=== PATIENT | female | born 1980 | race Caucasian/White ===

== ENCOUNTER 2020-06-13 12:53 | Emergency (ER) | payer OTHER, MEDICAID, SELFPAY ==
[2020-06-13] VITALS (12 sets, daily range): BP systolic 120–146; BP diastolic 58–85; PULSE 76–105; RESP 16–22; TEMP 36.3; O2SAT 83–100
--- NOTE | 2020-06-13 14:32 | ED.ABDPAIN ---
HPI - Abdominal Pain General Chief Complaint: Abdominal Pain Stated Complaint: abdominal pain Time Seen by Provider: 06/13/20 14:32 Source: patient Mode of arrival: Ambulatory History of Present Illness HPI narrative: 40-year-old woman with an extraordinarily convoluted story with multiple internal inconsistencies. She initially states that she walked directly off a high embankment and landed directly on her feet hurting her low back. With questioning she is unable to remember exactly which day this happened but seems to think it was about 5 days ago. It happened in the dark so she does not know how high it was but she initially thought it could be between 8 and 10 ft, when asked if that meant she was as high as off the roof of a single-story house she did not think it was quite that high. She is unable to give any other details about that acute event. She states that her low back has been sore and her left leg was increasingly heavy to the point that she had to have ?bullet around? 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 She notes that she was having increasing urinary frequency and is now having frequency with incontinence. When asked about bowel habits and entirely other set of symptoms are revealed. She says that she has not had a bowel movement in at least a week or more. She has been having trouble eating and so has been trying to use protein shakes at least. This has been going on for somewhere around 6 months. She thinks that an ER doctor and the surgeon at [facility] told her that she might have cancer and needed blood work to see if it was metastatic. She then relates the cancer concern to her knee. She notes that she has lost almost 60 lbs in 3 months. She states that 3 months ago she weighed 196 lb and today she is 136 lb. She states that with the decreased oral intake she has had significantly decreased bowel movements and only goes at most once or twice a week recently. She does note that she is having some fecal incontinence over the last few days as well. History is extraordinarily convoluted, non consistent but has multiple very concerning red flags including this recent fall, bowel and bladder incontinence, weakness after the fall, dramatic weight loss, reports that a doctor told her she needed metastatic blood work. The did agree of confusion and absolute lack of insight is extraordinary. Records have been requested from [facility] and blood work will be initiated. Related Data Previous Rx's Medication Instructions Recorded loratadine [Claritin] 10 mg PO QDAY #90 tab 05/13/13 Allergies Allergy/AdvReac Type Severity Reaction Status Date / Time Sulfa (Sulfonamide Allergy Severe HIVES/THROAT Verified 06/13/20 13:37 Antibiotics) SWELLING azithromycin Allergy Unknown Verified 06/13/20 13:37 codeine Allergy Unknown ITCHING;STOMACH Verified 06/13/20 13:37 CRAMPS etodolac Allergy Unknown Verified 06/13/20 13:37 NSAIDS (Non-Steroidal Allergy Unknown Verified 06/13/20 13:37 Anti-Inflamma [NSAIDS (NON-STEROIDAL ANTI-INFLAMMA] Review of Systems Review of Systems Narrative: Remainder of review of systems including constitutional, ENT, cardiovascular, respiratory, GI, , musculoskeletal, skin, neurologic and psychiatric systems reviewed and are unremarkable except as noted in HPI. Patient History Medical History Abdominal pain (Inactive) Drug abuse (Inactive) Psychosis (Inactive) Social History Smoking Status: Current every day smoker Smoking Status: Current every day smoker Exam Narrative Exam Narrative: General: Thin, moderately uncomfortable with low back pain HEENT: Moist mucous membranes, normal sclera with reactive pupils, Neck: No JVD, supple Respiratory: Lungs are clear to auscultation, no wheezing no rales no rhonchi. Full and symmetrical air movement Cardiac: Regular rate and rhythm no murmurs no bruits Abdomen: Soft, mild tenderness in low pelvis without rebound or guarding, good bowel tones, no flank pain Skin: Warm and dry, no rashes Spine: Tenderness along the lumbar spine without rash or erythema. Some mild paraspinous passed some on the left side. No tenderness with pelvic ring manipulation. Neurologic: Left leg with mild weakness but she is able to move twisted just and stand on it. No paresthesias Extremities: No trauma, well perfused Psych: Cooperative but tangential with poor insight Initial Vital Signs Initial Vital Signs: Vital Signs Temperature 97.4 F L 06/13/20 13:08 Pulse Rate 105 H 06/13/20 13:08 Respiratory Rate 22 06/13/20 13:08 Blood Pressure 146/61 H 06/13/20 13:08 Pulse Oximetry 99 06/13/20 13:08 Course Orders Ordered: ED Orders 06/13/20 13:36 EKG-12 Lead Stat 06/13/20 14:29 Complete Blood Count AUTO DIFF Stat Comprehensive Metabolic Panel Stat Lactate (Lactic Acid) Stat Lipase Stat Partial Thromboplastin Time Stat Prothrombin Time INR Stat Urine Drug Screen, Rapid Stat 06/13/20 15:02 XR lumbar spine 2-3V Stat 06/13/20 15:03 XR acute abdomen series Stat 06/13/20 15:04 Consult to [facility] [place] Pharmacy Techn[facility] Instructor Stat 06/13/20 16:59 CT abdomen pelvis w con Stat Discontinued Medications Sodium Chloride (Normal Saline 0.9%) 1,000 mls @ 1,000 mls/hr IV BOLUS ONE Stop: 06/13/20 15:30 Last Infusion: 06/13/20 15:52 Dose: 0 mls/hr Documented by: Admin: 06/13/20 14:38 Dose: 1,000 mls/hr Documented by: LALA Vital Signs Vital signs: Vital Signs - 8 hr 06/13/20 13:08 06/13/20 14:01 06/13/20 14:53 Temperature 97.4 F L Pulse Rate 105 H 83 88 Respiratory Rate 22 Blood Pressure 146/61 H 141/79 H 134/82 Pulse Oximetry 99 100 100 06/13/20 15:00 06/13/20 15:25 06/13/20 15:30 Temperature Pulse Rate 86 90 83 Respiratory Rate Blood Pressure 125/79 136/77 Pulse Oximetry 100 100 87 L 06/13/20 16:00 06/13/20 16:30 06/13/20 17:00 Temperature Pulse Rate 84 92 H 86 Respiratory Rate Blood Pressure Pulse Oximetry 83 L 100 89 L 06/13/20 17:19 06/13/20 17:30 Temperature Pulse Rate 81 76 Respiratory Rate Blood Pressure 122/58 L Pulse Oximetry 100 83 L MDM - Abdominal Pain Medical Records Attestation: I reviewed the patient's medical records. Medical records narrative: Medical records from [facility] indicate a history of schizophrenia and substance abuse as well as homelessness Lab Data Attestation: I reviewed the patient's lab results. Result diagrams: 06/13/20 14:29 06/13/20 14:29 Labs: Lab Results 06/13/20 06/13/2020 Range/Units 14:29 14:29 14:29 WBC 8.2 (4.5-11.0) X10^3/uL RBC 4.64 (4.0-5.2) X10^6/uL Hgb 14.0 (12.0-16.0) g/dL Hct 41.7 (36-46) % MCV 89.9 (80-100) fL MCH 30.2 (26-34) PG MCHC 33.6 (30-36) % RDW 13.9 (11.6-14.8) % Plt Count 295 (150-400) X10^3/uL Neut % (Auto) 53.7 (50-75) % Lymph % (Auto) 38.4 (25-40) % [place] % (Auto) 5.8 (3-14) % Eos % (Auto) 1.5 L (2-4) % Baso % (Auto) 0.6 (0-2) % Neut # (Auto) 4400 (4952-8865) /uL Lymph # (Auto) 3100 (2257-4873) /uL [place] # (Auto) 500 (0-900) /uL Eos # (Auto) 100 (0-450) /uL Baso # (Auto) 0 (0-100) /uL PT 12.0 (10.1-12.7) SECONDS INR 1.0 (0.9-1.3) APTT 38 H (26.4-36.2) SECONDS Sodium 137 (137-145) mmol/L Potassium 3.3 L (3.4-5.1) mmol/L Chloride 100 (98-107) mmol/L Carbon Dioxide 28 (22-32) mmol/L BUN 12 (7-17) mg/dL Creatinine 0.69 (0.52-1.04) mg/dL Estimated GFR > 60.0 (>60) mL/min BUN/Creatinine Ratio 17.4 (6-22) Glucose 93 (70-100) mg/dL Lactate (0.7-2.1) mmol/L Calcium 9.9 (8.4-10.2) mg/dL Total Bilirubin 0.7 (0.2-1.3) mg/dL AST 27 (14-36) IU/L ALT 18 (<35) IU/L Alkaline Phosphatase 54 (38-126) U/L Total Protein 7.6 (6.3-8.2) g/dL Albumin 4.8 (3.5-5.0) g/dL Globulin 2.8 (1.7-4.1) g/dL Albumin/Globulin Ratio 1.7 (1.0-2.8) Lipase 69 (23-300) U/L U Opiates 300ng/mL cut (Negative) Ur Oxycodone Screen (Negative) Urine Methadone Screen (Negative) Ur Barbiturates Screen (Negative) U Tricyclic Antidepress (Negative) Ur Phencyclidine Scrn (Negative) Ur Amphetamines Screen (Negative) U Methamphetamines Scrn (Negative) Ur MDMA Scrn (Ecstasy) (Negative) U Benzodiazepines Scrn (Negative) Urine Cocaine Screen (Negative) U Marijuana (THC) Screen (Negative) 06/13/20 06/13/20 Range/Units 14:29 14:29 WBC (4.5-11.0) X10^3/uL RBC (4.0-5.2) X10^6/uL Hgb (12.0-16.0) g/dL Hct (36-46) % MCV (80-100) fL MCH (26-34) PG MCHC (30-36) % RDW (11.6-14.8) % Plt Count (150-400) X10^3/uL Neut % (Auto) (50-75) % Lymph % (Auto) (25-40) % [place] % (Auto) (3-14) % Eos % (Auto) (2-4) % Baso % (Auto) (0-2) % Neut # (Auto) (1904-4928) /uL Lymph # (Auto) (8875-8944) /uL [place] # (Auto) (0-900) /uL Eos # (Auto) (0-450) /uL Baso # (Auto) (0-100) /uL PT (10.1-12.7) SECONDS INR (0.9-1.3) APTT (26.4-36.2) SECONDS Sodium (137-145) mmol/L Potassium (3.4-5.1) mmol/L Chloride (98-107) mmol/L Carbon Dioxide (22-32) mmol/L BUN (7-17) mg/dL Creatinine (0.52-1.04) mg/dL Estimated GFR (>60) mL/min BUN/Creatinine Ratio (6-22) Glucose (70-100) mg/dL Lactate 1.4 (0.7-2.1) mmol/L Calcium (8.4-10.2) mg/dL Total Bilirubin (0.2-1.3) mg/dL AST (14-36) IU/L ALT (<35) IU/L Alkaline Phosphatase (38-126) U/L Total Protein (6.3-8.2) g/dL Albumin (3.5-5.0) g/dL Globulin (1.7-4.1) g/dL Albumin/Globulin Ratio (1.0-2.8) Lipase (23-300) U/L U Opiates 300ng/mL cut Negative (Negative) Ur Oxycodone Screen Negative (Negative) Urine Methadone Screen Negative (Negative) Ur Barbiturates Screen Negative (Negative) U Tricyclic Antidepress Negative (Negative) Ur Phencyclidine Scrn Negative (Negative) Ur Amphetamines Screen Positive H (Negative) U Methamphetamines Scrn Positive H (Negative) Ur MDMA Scrn (Ecstasy) Negative (Negative) U Benzodiazepines Scrn Negative (Negative) Urine Cocaine Screen Negative (Negative) U Marijuana (THC) Screen Negative (Negative) Point of care testing: Point of Care Testing Test Results Negative Urine Dip Bedside Urine Glucose Negative Bedside Urine Bilirubin - Negative Bedside Urine Ketone - Negative Urine Specific [place] 1.010 Bedside Urine Occult Blood - Negative Bedside Urine pH 6.5 Bedside Urine Protein - Negative Bedside Urine Urobilinogen - Negative Bedside Urine Nitrite - Negative Bedside Urine Leukocytes - Negative Esterase Imaging Data XR lumbar sine: Radiologist's Impression: FINDINGS: Bones: No fracture. Mild levocurvature. The disc spaces appear grossly preserved. Mild lower lumbar facet disease. Soft tissues: Overlying bowel gas pattern is normal. No suspicious soft tissue calcifications. IMPRESSION: Mild lower lumbar facet arthropathy Levocurvature No fracture Dictated by: Christian Carey M.D. on 06/13/2020 at 16:07 XR acute abdominal series: Radiologist's Impression: FINDINGS: Surgical changes and devices: None. Chest: Lungs are clear. Nipple shadows. Heart size is normal. No pleural effusions. No pneumoperitoneum. Abdomen: Relative paucity of small bowel gas limits evaluation for small bowel obstruction. No dilated loops of bowel seen. No air-fluid levels. No suspicious calcifications. Bones: No suspicious bony lesions. IMPRESSION: No acute cardiopulmonary abnormality. No dilated loops of bowel seen. CT abdomen and pelvis with IV and oral contrast should be considered in this patient with substantial weight loss. Dictated by: Elmo Jackson M.D. on 06/13/2020 at 16:07 CT scan - abdomen/pelvis: Radiologist's Impression: FINDINGS: Image quality: Diagnostic, with note made of motion artifact. ABDOMEN: Lung bases: Lung bases are clear. Heart size is normal. Solid organs: Liver is normal in size and enhancement. Gallbladder wall is not thickened. Biliary system is non dilated. Pancreas enhances normally. Spleen is normal in size and enhancement. No adrenal nodules. Kidneys demonstrate normal size and enhancement, without hydronephrosis. Peritoneum and bowel: Small bowel loops within the left upper quadrant are mildly prominent and measure up to 2.6 cm. Wall thickening can be seen. Nodes and vessels: No retroperitoneal or mesenteric adenopathy by size criteria. Aorta and inferior vena cava are normal in size. Miscellaneous: A trace periumbilical hernia is seen, containing fat. PELVIS: Genitourinary: Bladder wall thickness is normal. The uterus demonstrates an arcuate configuration. Potential endometrial polyps can be seen, as on series 2, image 70. No adnexal masses can be seen on either side. Miscellaneous: No inguinal hernias or adenopathy. Bones: No suspicious bony lesions. No vertebral body compression fractures. Focal L5-S1 degenerative change is seen. Milder degenerative changes are seen elsewhere. IMPRESSION: Mildly prominent loops of small bowel can be seen within the left upper quadrant of the abdomen, with wall thickening. Ileus from enteritis is suspected. Please correlate with known patient history. Abnormal uterus, with an acute configuration and apparent endometrial polyps. Please consider a scheduled pelvic ultrasound for further evaluation. A sonohysterogram may also the common necessary for further evaluation. Focal premature L5-S1 degenerative change is seen. Incidental note is made of: Trace periumbilical hernia Dictated by: Dain Dillon M.D. on 06/13/2020 at 16:33 MDM Narrative Medical decision making narrative: 40-year-old woman with on constellation of complaints, inconsistent history. Additional information is now available. She does have methamphetamine in her urine as well as a history of methamphetamine use and psychosis as well as possible schizophrenia. She does not appear to be acutely psychotic today but is slightly tangential. Given the pain that she is having the weight loss that she describes and no documentation to disproved any of that I am going to proceed with CT scan to make sure there are not any intra-abdominal abnormalities that do need additional follow-up. I suspect she has mechanical low back pain and methamphetamine use with psychotic features as her most likely diagnosis at this time On further exam there is no evidence of compression fracture, epidural abscess, cauda equina syndrome, intra-abdominal mass or significant finding suggestive of a cancer much less metastatic cancer. I am not sure that her described weight loss is truly is significant as it is and if so a better explanation is likely methamphetamine use rather than metastatic disease. Patient states she does have a home to live in and lives on [address]. She is not acutely delusional. Reassurance is given and she is safe for home discharge. Discharge Plan Departure Patient Disposition: Home Clinical Impression: Abdominal pain Qualifiers: Abdominal location: generalized Qualified Code(s): R10.84 - Generalized abdominal pain Back pain Qualifiers: Back pain location: low back pain Chronicity: acute Back pain laterality: left Sciatica presence: without sciatica Qualified Code(s): M54.5 - Low back pain Instructions: DI for Low Back Pain Activity Restrictions/Additional Instructions: Thank you for coming in Your workup was very reassuring. I did not find any acute injury with your back after your fall. I also did not find anything that looks like a cancer which is very reassuring Please follow-up with your primary care physician I wish you the best Prescriptions: No Action loratadine [Claritin] 10 MG tablet 10 mg PO QDAY Qty: 90 RF: 1 Referrals: Luis Munguia MD [Primary Care Provider] -
[2020-06-13] MEDS: SODIUM CHLORIDE 0.9% 1,000 ML 1000 ML IV (14:38)
[2020-06-13 14:42] LABS: Add Manual Diff / Slide Review NO; Basophils Absolute Auto 0 /uL (0-100); Basophils Percent Auto 0.6 % (0-2); Eosinophils Absolute Auto 100 /uL (0-450); Eosinophils Percent Auto 1.5 % (2-4); Hematocrit 41.7 % (36-46); Lymphocytes Absolute Auto 3100 /uL (1100-4500); Lymphocytes Percent Auto 38.4 % (25-40); Mean Corpuscular HGB Conc 33.6 % (30-36); Mean Corpuscular Hemoglobin 30.2 PG (26-34); Mean Corpuscular Volume 89.9 fL (80-100); Monocytes Absolute Auto 500 /uL (0-900); Monocytes Percent Auto 5.8 % (3-14); Neutrophils Absolute Auto 4400 /uL (1500-7000); Neutrophils Percent Auto 53.7 % (50-75); Platelet Count 295 X10^3/uL (150-400); Red Blood Cell Count 4.64 X10^6/uL (4.0-5.2); Red Cell Distribution Width 13.9 % (11.6-14.8); White Blood Cell Count 8.2 X10^3/uL (4.5-11.0)
[2020-06-13 14:50] LABS: PTT Partial Thromboplastin Tim 38 SECONDS (26.4-36.2); UR Morphine/Opiate cutoff 300 Negative (Negative); Ur Creatinine Normal (Normal); Ur Specific Gravity Normal (Normal); Urine Amphetamines Positive (Negative); Urine Barbiturates Negative (Negative); Urine Benzodiazepines Negative (Negative); Urine Cocaine Negative (Negative); Urine MDMA Negative (Negative); Urine Methadone Negative (Negative); Urine Methamphetamines Positive (Negative); Urine Phencyclidine Negative (Negative); Urine Tetrahydrocannabinol Negative (Negative); Urine Tricyclic Antidepressant Negative (Negative); Urine pH Normal (Normal)
[2020-06-13 14:51] LABS: Urine Oxycodone Negative (Negative)
[2020-06-13 14:54] LABS: Alanine Aminotransferase 18 IU/L (<35); Albumin 4.8 g/dL (3.5-5.0); Albumin Globulin Ratio 1.7 (1.0-2.8); Alkaline Phosphatase 54 U/L (38-126); Aspartate Aminotransferase 27 IU/L (14-36); BUN Creatinine Ratio 17.4 (6-22); Bilirubin Total 0.7 mg/dL (0.2-1.3); Blood Urea Nitrogen 12 mg/dL (7-17); Calcium 9.9 mg/dL (8.4-10.2); Carbon Dioxide 28 mmol/L (22-32); Chloride 100 mmol/L (98-107); Estimated Glomerular Filt Rate > 60.0 mL/min (>60); Globulin 2.8 g/dL (1.7-4.1); Glucose 93 mg/dL (70-100); HEMOLYSIS < 15 (0-50); Lactate (Lactic Acid) 1.4 mmol/L (0.7-2.1); Lipase 69 U/L (23-300); Potassium 3.3 mmol/L (3.4-5.1); Sodium 137 mmol/L (137-145); Total Protein 7.6 g/dL (6.3-8.2)
--- NOTE | 2020-06-13 15:00 | PC.NURSE ---
Pt arrives c/o fall 7-8 days ago from about 8-10ft flat onto feet, states since the fall she has been having bladder bowel dysfunction. states dribbling when urinating and unable to defecate in days which is not normal for her. Pt speaking with flight of ideas, states how she was seen at [facility] over 1 year ago and was dx with metastatic CA without unknown origin and was supposed to follow up but never had the time. I went to [facility] because my knee was leaking and they said I had metastasis Pt twitching which she states is not normal for her. Urine obtained and sent for UAC and drug screen. IV obtained and labs sent with IVF infusing per MAR. NAD.
--- NOTE | 2020-06-13 15:02 | DI.RAD.S_ITS ---
PROCEDURE: XR LUMBAR SPINE 2-3V INDICATIONS: recent trauma TECHNIQUE: 3 views of the lumbar spine were acquired. COMPARISON: None. FINDINGS: Bones: No fracture. Mild levocurvature. The disc spaces appear grossly preserved. Mild lower lumbar facet disease. Soft tissues: Overlying bowel gas pattern is normal. No suspicious soft tissue calcifications. IMPRESSION: Mild lower lumbar facet arthropathy Levocurvature No fracture Dictated by: Christian Carey M.D. on 06/13/2020 at 16:07 Approved by: Christian Carey M.D. on 06/13/2020 at 16:09
--- NOTE | 2020-06-13 15:03 | DI.RAD.S_ITS ---
PROCEDURE: XR ACUTE ABDOMEN SERIES INDICATIONS: weight loss TECHNIQUE: One view chest and two views of the abdomen were acquired. COMPARISON: [facility], , ABDOMEN 2 VIEW, 06/24/2017, 4:56. FINDINGS: Surgical changes and devices: None. Chest: Lungs are clear. Nipple shadows. Heart size is normal. No pleural effusions. No pneumoperitoneum. Abdomen: Relative paucity of small bowel gas limits evaluation for small bowel obstruction. No dilated loops of bowel seen. No air-fluid levels. No suspicious calcifications. Bones: No suspicious bony lesions. IMPRESSION: No acute cardiopulmonary abnormality. No dilated loops of bowel seen. CT abdomen and pelvis with IV and oral contrast should be considered in this patient with substantial weight loss. Dictated by: Elmo Jackson M.D. on 06/13/2020 at 16:07 Approved by: Elmo Jackson M.D. on 06/13/2020 at 16:13
--- NOTE | 2020-06-13 15:22 | CM.SWNOTE ---
AUTOTRANSFUSIONIST note AUTOTRANSFUSIONIST consult/records review requested for patient. Patient is a 40 y/o female who presents to ED after a fall. Per Dr. Gordon and RN, patient's story is inconsistent and patient makes several concerning statements including stating that she had been diagnosed with metastatic cancer 1 year prior at [facility] and not engaged in follow up care. Dr. Gordon requests AUTOTRANSFUSIONIST review chart and Karl to see if there is any any relevant history to better inform today's presentation. AUTOTRANSFUSIONIST reviews KARL and sees 2 visits to [facility] by patient in 2019. Per Karl, patient was seen at [facility] for a fit for prison in July of 2019 and for an allergic reaction on April of 2019. AUTOTRANSFUSIONIST informs Dr. Gordon of this, and Dr. Gordon informs that there are no other needs from AUTOTRANSFUSIONIST at this time. CODIE Post
--- NOTE | 2020-06-13 16:59 | DI.CT.S_ITS ---
PROCEDURE: CT ABDOMEN PELVIS W CON INDICATIONS: significant weight loss with abdominal and back pain TECHNIQUE: After the administration of intravenous contrast, 5 mm thick sections acquired from the diaphragm to the symphysis. 5 mm coronal and sagittal reformats were acquired. For radiation dose reduction, the following was used: automated exposure control, adjustment of mA and/or kV according to patient size. COMPARISON: [facility], CR, XR ACUTE ABDOMEN SERIES, 06/13/2020, 14:58. [facility], CR, XR LUMBAR SPINE 2-3V, 06/13/2020, 14:58. FINDINGS: Image quality: Diagnostic, with note made of motion artifact. ABDOMEN: Lung bases: Lung bases are clear. Heart size is normal. Solid organs: Liver is normal in size and enhancement. Gallbladder wall is not thickened. Biliary system is non dilated. Pancreas enhances normally. Spleen is normal in size and enhancement. No adrenal nodules. Kidneys demonstrate normal size and enhancement, without hydronephrosis. Peritoneum and bowel: Small bowel loops within the left upper quadrant are mildly prominent and measure up to 2.6 cm. Wall thickening can be seen. Nodes and vessels: No retroperitoneal or mesenteric adenopathy by size criteria. Aorta and inferior vena cava are normal in size. Miscellaneous: A trace periumbilical hernia is seen, containing fat. PELVIS: Genitourinary: Bladder wall thickness is normal. The uterus demonstrates an arcuate configuration. Potential endometrial polyps can be seen, as on series 2, image 70. No adnexal masses can be seen on either side. Miscellaneous: No inguinal hernias or adenopathy. Bones: No suspicious bony lesions. No vertebral body compression fractures. Focal L5-S1 degenerative change is seen. Milder degenerative changes are seen elsewhere. IMPRESSION: Mildly prominent loops of small bowel can be seen within the left upper quadrant of the abdomen, with wall thickening. Ileus from enteritis is suspected. Please correlate with known patient history. Abnormal uterus, with an acute configuration and apparent endometrial polyps. Please consider a scheduled pelvic ultrasound for further evaluation. A sonohysterogram may also the common necessary for further evaluation. Focal premature L5-S1 degenerative change is seen. Incidental note is made of: Trace periumbilical hernia Dictated by: Dain Dillon M.D. on 06/13/2020 at 16:33 Approved by: Dain Dillon M.D. on 06/13/2020 at 16:36
== END 2020-06-13 18:30 | disposition home or self-care (01) ==
PROVIDERS: Emergency Provider Emergency Medicine; PCP Family Medicine
DX: R10.84 Generalized abdominal pain (principal); M54.5 Low back pain
CPT/HCPCS: 36415; 72100; 74022; 74177; 80053; 80305; 81003; 81025; 83605; 83690; 85025; 85610; 85730; 93005; 96360; 99284; 99285; Q9967

== ENCOUNTER 2020-09-06 01:19 | Emergency (ER) | payer OTHER, MEDICAID, SELFPAY ==
--- NOTE | 2020-09-06 01:30 | PC.NURSE ---
I could not locate her in waiting room,admitting stated she was in the bathroom and that is why she initially came into hospital.
[2020-09-06 01:40] VITALS: BP 125/80; PULSE 110; RESP 20; TEMP 37; O2SAT 98
--- NOTE | 2020-09-06 02:00 | ED.GENADULT ---
HPI - General Adult General Chief complaint: Extremity Problem,Nontraumatic Stated complaint: Toe infection multiple toes Time Seen by Provider: 09/06/20 01:21 Source: patient Mode of arrival: Ambulatory Limitations: no limitations History of Present Illness HPI narrative: Patient is a 40-year-old female who is here for evaluation of potential toe infections. She states that she feels like that there was an infection that started in the back of her legs that went down and is now ?coming out of my toes ?she states this is been going on for the past several weeks/months. She states that generally she just does not feel very well. Has had weight loss. Did initially mention multiple other complaints to nursing staff however states she is here to have her toes evaluated. His also reported that the only reason that she checked in to the emergency department was because she is homeless and came into the hospital asking to use the restroom in the registration staff stated that she could not just use the restroom so she decided to check in. Review of her medical record shows that she does have a history of schizophrenia and drug use Related Data Previous Rx's Medication Instructions Recorded loratadine [Claritin] 10 mg PO QDAY #90 tab 05/13/13 Allergies Allergy/AdvReac Type Severity Reaction Status Date / Time Sulfa (Sulfonamide Allergy Severe HIVES/THROAT Verified 06/13/20 13:37 Antibiotics) SWELLING azithromycin Allergy Unknown Verified 06/13/20 13:37 codeine Allergy Unknown ITCHING;STOMACH Verified 06/13/20 13:37 CRAMPS etodolac Allergy Unknown Verified 06/13/20 13:37 NSAIDS (Non-Steroidal Allergy Unknown Verified 06/13/20 13:37 Anti-Inflamma [NSAIDS (NON-STEROIDAL ANTI-INFLAMMA] Review of Systems Constitutional Constitutional: Reports malaise Musculoskeletal Comments: Infection ?coming out of my toes ? Integumentary/Breasts Skin/Breast: Denies lesions and Denies rash Neurologic Neurologic: Denies burning sensations Hematologic/Lymphatic Hematologic/Lymphatic: Denies easy bleeding and Denies easy bruising Patient History Medical History Abdominal pain Drug abuse Psychosis Social History Smoking Status: Current every day smoker Smoking Status: Current every day smoker Substance Use Type: methamphetamine Exam Initial Vital Signs Initial Vital Signs: Vital Signs Temperature 98.6 F 09/06/20 01:40 Pulse Rate 110 H 09/06/20 01:40 Respiratory Rate 20 09/06/20 01:40 Blood Pressure 125/80 09/06/20 01:40 Pulse Oximetry 98 09/06/20 01:40 Const General: comfortable Limitations: mental status not altered HENMT Head: normal to inspection and normocephalic Cardio Rate: tachycardic Pulses: dorsalis pedis present bilaterally Skin Lesions: no lesions Rashes: no rashes Wounds: no wounds Extrem General: capillary refill normal Psych Appearance: disheveled Course Vital Signs Vital signs: Vital Signs - 8 hr 09/06/20 01:40 09/06/20 02:32 Temperature 98.6 F Pulse Rate 110 H 96 H Respiratory Rate 20 18 Blood Pressure 125/80 119/79 Pulse Oximetry 98 99 Medical Decision Making MDM Narrative Medical decision making narrative: Patient's foot exam is unremarkable. There is no redness. No lesions. Has brisk cap refill. Neurovascularly intact. Her legs and feet have no signs of any infections. No indication for antibiotics. No indication for radiologic studies. Patient was given a sandwich and hot coffee. No further workup needed in the emergency department. She was given return precautions. She expressed understanding and agreement. Discharge Plan Departure Patient Disposition: Home Clinical Impression: Normal foot exam Activity Restrictions/Additional Instructions: There was no sign of any infections today. Contact your primary provider for follow-up. If you do not have a primary provider can contact [phone]. This is the health human resources support specialist here at the hospital. Return to the emergency department for any new or worsening symptoms Prescriptions: No Action loratadine [Claritin] 10 MG tablet 10 mg PO QDAY Qty: 90 RF: 1 Referrals: Luis Munguia MD [Primary Care Provider] -
[2020-09-06 02:32] VITALS: BP 119/79; PULSE 96; RESP 18; O2SAT 99
== END 2020-09-06 02:32 | disposition home or self-care (01) ==
PROVIDERS: Emergency Provider Emergency Medicine; PCP Family Medicine
DX: L08.9 Local infection of the skin and subcutaneous tissue, unspecified (principal); F20.9 Schizophrenia, unspecified
CPT/HCPCS: 99281

== ENCOUNTER 2020-12-06 03:49 | Emergency (ER) | payer OTHER, MEDICAID, SELFPAY ==
--- NOTE | 2020-12-06 03:58 | ED.GENADULT ---
HPI - General Adult General Chief complaint: Urogenital-Female Stated complaint: wants bp checked, not feeling well Time Seen by Provider: 12/06/20 03:54 Source: patient Mode of arrival: Ambulatory Limitations: no limitations History of Present Illness HPI narrative: Patient is a 40-year-old female. His homeless and disheveled. She does have a history of schizophrenia and also drug use per her prior notes in our system. She arrives today for what seems like multiple symptoms to include ?loss of my bodily fluids ??my body is shutting down ??high blood pressure ?. She also told nursing staff that she was concerned she had infections in her legs. She also states she has pain all over. She states that things have been getting worse and that she has a very high pain tolerance. Does seem very difficult to pin down exactly why she is here. She also states that she is having some lower back pain. Related Data Previous Rx's Medication Instructions Recorded loratadine [Claritin] 10 mg PO QDAY #90 tab 05/13/13 Allergies Allergy/AdvReac Type Severity Reaction Status Date / Time Sulfa (Sulfonamide Allergy Severe HIVES/THROAT Verified 06/13/20 13:37 Antibiotics) SWELLING azithromycin Allergy Unknown Verified 06/13/20 13:37 codeine Allergy Unknown ITCHING;STOMACH Verified 06/13/20 13:37 CRAMPS etodolac Allergy Unknown Verified 06/13/20 13:37 NSAIDS (Non-Steroidal Allergy Unknown Verified 06/13/20 13:37 Anti-Inflamma [NSAIDS (NON-STEROIDAL ANTI-INFLAMMA] Review of Systems Constitutional Constitutional: Denies fever(s) Comments: Loss of bodily fluid Cardiovascular Cardiovascular: Denies chest pain and Denies dyspnea Respiratory Respiratory: Denies dyspnea Gastrointestinal Gastrointestinal: Denies abdominal pain Genitourinary Genitourinary: Denies dysuria Genitourinary: Denies dysuria Musculoskeletal Comments: ?Pain all over ? Integumentary/Breasts Comments: Potential infection on legs Hematologic/Lymphatic On Anticoagulants: No Patient History Medical History (Updated 12/06/20 @ 04:49 by Hector Beltrán DO) Abdominal pain Drug abuse Psychosis Social History Smoking Status: Current every day smoker Smoking Status: Current every day smoker Substance Use Type: methamphetamine Exam Initial Vital Signs Initial Vital Signs: Vital Signs Temperature 97.7 F 12/06/20 04:08 Pulse Rate 101 H 12/06/20 04:08 Respiratory Rate 17 12/06/20 04:08 Blood Pressure 140/85 12/06/20 04:08 Pulse Oximetry 96 12/06/20 04:08 Const General: disheveled HENMT Head: normal to inspection and normocephalic Resp Effort & Inspection: normal respiratory effort Auscultation: clear to auscultation bilaterally Cardio Rate: regular rate Rhythm: regular rhythm Back/Spine/Pelvis Thoracic/Lumbar Spine: paraspinal tenderness Skin Lesions: no lesions Rashes: no rashes Neuro General: patient alert, patient awake and moves all extremities Extrem General: capillary refill normal Psych Appearance: disheveled Course Vital Signs Vital signs: Vital Signs - 8 hr 12/06/20 04:08 Temperature 97.7 F Pulse Rate 101 H Respiratory Rate 17 Blood Pressure 140/85 Pulse Oximetry 96 Medical Decision Making Lab Data Lab results reviewed: Yes I reviewed the patient's lab results. Labs: Urine Dip Bedside Urine Glucose Negative Bedside Urine Bilirubin - Negative Bedside Urine Ketone - Negative Urine Specific [place] 1.010 Bedside Urine Occult Blood +++ Bedside Urine pH 6.5 Bedside Urine Protein +/- 15 Bedside Urine Urobilinogen - Negative Bedside Urine Nitrite - Negative Bedside Urine Leukocytes - Negative Esterase Point of care testing: Urine Dip Bedside Urine Glucose Negative Bedside Urine Bilirubin - Negative Bedside Urine Ketone - Negative Urine Specific [place] 1.010 Bedside Urine Occult Blood +++ Bedside Urine pH 6.5 Bedside Urine Protein +/- 15 Bedside Urine Urobilinogen - Negative Bedside Urine Nitrite - Negative Bedside Urine Leukocytes - Negative Esterase MDM Narrative Medical decision making narrative: Very difficult to ascertain when the patient is here as she has multiple complaints. She also made mention that she was here because she did not want to be home any longer. Her urinalysis shows no signs of any infection. She has no signs of any infections on her legs. She was given a resource packet for the local area to help her with housing. Patient will be discharged home with instructions to return if her symptoms worsen Discharge Plan Departure Patient Disposition: Home Clinical Impression: Lower back pain Instructions: Low Back Pain Activity Restrictions/Additional Instructions: Recommend that you use the resource packet that you were given to help with any of here social needs to include housing and food and clothing. You can also contact the health resources coordinator [phone]. This individual can help to establish a primary provider. Return to the emergency department for any new symptoms Prescriptions: No Action loratadine [Claritin] 10 MG tablet 10 mg PO QDAY Qty: 90 RF: 1 Referrals: Luis Munguia MD [Primary Care Provider] -
[2020-12-06 04:08] VITALS: BP 140/85; PULSE 101; RESP 17; TEMP 36.5; O2SAT 96; BMI 18.4
== END 2020-12-06 05:32 | disposition home or self-care (01) ==
PROVIDERS: Emergency Provider Emergency Medicine; PCP Family Medicine
DX: M54.5 Low back pain (principal); F20.9 Schizophrenia, unspecified; Z59.0 Homelessness
CPT/HCPCS: 81003; 99281

== ENCOUNTER 2020-12-08 11:02 | Emergency (ER) | payer OTHER, MEDICAID, SELFPAY ==
[2020-12-08 11:00] VITALS: BP 178/78; PULSE 100; RESP 24; TEMP 36.2; O2SAT 99
--- NOTE | 2020-12-08 11:06 | ED.PSYCH ---
HPI - Psych General Chief Complaint: Psychiatric Symptoms Stated Complaint: Brought by [employer] Time Seen by Provider: 12/08/20 11:06 Source: patient and police Mode of arrival: Ambulatory Limitations: other History of Present Illness HPI Narrative: This is a 40-year-old female brought by PD for concern for psychiatric illness. Patient was brought into contact with law enforcement secondary to multiple calls for businesses patient was having interactions where she was having bizarre speech. Patient is not well known to law enforcement, there is a prior note from suicidal ideation but no other psychiatric history is included. Past medical history from that no included drug and alcohol abuse. At that time patient did not have any hallucinations or bizarre speech. Here in the department it is difficult to follow patient's train of thought. She describes paranoid, a sense of being persecuted, she describes having 4 sets of sec. Let us which have been taken away from her. And she makes multiple other claims although sometimes it is very difficult to follow her train of thought. Patient keeps looking over her shoulder as if there is another individual although it is unclear if she is having a visual hallucination or just concerned about as someone persecuting her that is elsewhere outside the building. Patient denies any drug use other than something being forced upon her. She also denies any recent alcohol use. She does not wish to be examined, she does not wish to be evaluated by social Work, she does not wish to have any further workup and does not wish to be here and is not willing to stay or be evaluated. At this time I would be concerned that she is gravely disabled. Related Data Previous Rx's Medication Instructions Recorded loratadine [Claritin] 10 mg PO QDAY #90 tab 05/13/13 Allergies Allergy/AdvReac Type Severity Reaction Status Date / Time Sulfa (Sulfonamide Allergy Severe HIVES/THROAT Verified 12/08/20 13:13 Antibiotics) SWELLING azithromycin Allergy Unknown Verified 12/08/20 13:13 codeine Allergy Unknown ITCHING;STOMACH Verified 12/08/20 13:13 CRAMPS etodolac Allergy Unknown Verified 12/08/20 13:13 NSAIDS (Non-Steroidal Allergy Unknown Verified 12/08/20 13:13 Anti-Inflamma [NSAIDS (NON-STEROIDAL ANTI-INFLAMMA] Review of Systems Review of Systems ROS Unobtainable: Unobtainable due to mental status/LOC Patient History Medical History (Updated 12/09/20 @ 10:34 by Lizeth Brown DO) Abdominal pain Drug abuse Psychosis Social History Smoking Status: Current every day smoker Smoking Status: Current every day smoker Substance Use Type: methamphetamine Exam Narrative Exam Narrative: GEN: Thin disheveled female, alert, patient is aware she is at a hospital, she does not answer other specific questions. Patient appears to be in moderate distress. Patient initially handcuffed. HEENT: Atraumatic, pupils are equal round reactive to light, extraocular movements are intact Patient HR/Lungs, examined after sedation. HEART: Regular rate and rhythm without murmur, clicks, rubs. LUNGS:Lungs clear to auscultation, no wheezes, rales, crackles, chest moves symmetrically ABD:bowel sounds normal, soft, non-tender, no guarding, rebound, rigidity, no masses noted, no hepatosplenomegaly :No CVA tenderness MSCL: muscles strength 5/5 upper and lower extremities, full range of motion, normal gait NEURO:CN 2-12 intact, sensation normal PSYCH: Patient does not directly answer questions about suicidal ideation or safety. She admits to multiple paranoid thoughts and sense of persecution. Unclear she is having auditory or visual hallucinations from our discussion but I suspect that she is. Patient has bizarre speech and tangential pattern that is very difficult to follow. Initial Vital Signs Initial Vital Signs: Vital Signs Temperature 97.1 F L 12/08/20 11:00 Pulse Rate 100 H 12/08/20 11:00 Respiratory Rate 24 12/08/20 11:00 Blood Pressure 178/78 H 12/08/20 11:00 Pulse Oximetry 99 12/08/20 11:00 Course Orders Ordered: Discontinued Medications Diphenhydramine HCl (Diphenhydramine 50 Mg/Ml Vial) 50 mg IM NOW ONE Stop: 12/08/20 11:16 Last Admin: 12/08/20 11:18 Dose: 50 mg Documented by: LALA Haloperidol (Haloperidol 5 Mg/Ml Vial) 10 mg IM NOW ONE Stop: 12/08/20 11:16 Last Admin: 12/08/20 11:18 Dose: 10 mg Documented by: LALA Lorazepam (Lorazepam 2 Mg/Ml Inj) 1 mg IM NOW ONE Stop: 12/08/20 11:16 Last Admin: 12/08/20 11:18 Dose: 1 mg Documented by: LALA Reevaluation(s) Reevaluation #1: Patient is arousable but sleeping. Labs do not show acute changes but urine has not been collected. Patient signed out to Dr. Gordon while awaiting urine studies and re-evaluation when patient is more alert. Patient does appear psychotic all of this is unclear if it is true psychiatric illness or possibly drug induced. Time: 17:50 Reevaluation #2: 12/09/20. Patient slept through most of the night. She was up was able to give a urine sample had also had some orange juice, she was more coherent at that time although had minimal discussion with staff and was very polte with staff and then went back to sleep. Urine tox does show methamphetamines and suspect her psychosis is likely related to methamphetamine use. Patient is currently sleeping and will re-evaluate a little later this morning. Time: 08:11 Reevaluation #3: Patient was resting but awoke easily. 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 She states yesterday she was very upset and is aware of where she is, she is aware she was brought by the police yesterday. At this time patient seems alert, appropriate and much more coherent. Time: 10:10 Vital Signs Vital signs: Vital Signs - 8 hr 12/09/20 12:51 12/09/20 13:47 Temperature 99.0 F Pulse Rate 96 H 98 H Respiratory Rate 14 16 Blood Pressure 110/56 L 112/65 Pulse Oximetry 99 98 MDM - Psych Lab Data Attestation: I reviewed the patient's lab results. Result diagrams: 12/08/20 11:35 12/08/20 11:35 Labs: Lab Results 12/08/20 12/08/20 12/08/20 Range/Units 11:35 11:35 11:35 WBC 6.3 (4.5-11.0) X10^3/uL RBC 4.15 (4.0-5.2) X10^6/uL Hgb 12.5 (12.0-16.0) g/dL Hct 37.2 (36-46) % MCV 89.6 (80-100) fL MCH 30.2 (26-34) PG MCHC 33.7 (30-36) % RDW 14.1 (11.6-14.8) % Plt Count 296 (150-400) X10^3/uL Neut % (Auto) 40.4 L (50-75) % Lymph % (Auto) 49.2 H (25-40) % [place] % (Auto) 7.5 (3-14) % Eos % (Auto) 2.3 (2-4) % Baso % (Auto) 0.6 (0-2) % Neut # (Auto) 2500 (9899-0321) /uL Lymph # (Auto) 3100 (6005-7071) /uL [place] # (Auto) 500 (0-900) /uL Eos # (Auto) 100 (0-450) /uL Baso # (Auto) 0 (0-100) /uL Sodium 137 (137-145) mmol/L Potassium 3.8 (3.4-5.1) mmol/L Chloride 105 (98-107) mmol/L Carbon Dioxide 25 (22-32) mmol/L BUN 22 H (7-17) mg/dL Creatinine 0.66 (0.52-1.04) mg/dL Estimated GFR > 60.0 (>60) mL/min BUN/Creatinine Ratio 33.3 H (6-22) Glucose 110 H (70-100) mg/dL Calcium 9.3 (8.4-10.2) mg/dL Total Bilirubin 0.2 (0.2-1.3) mg/dL AST 29 (14-36) IU/L ALT 22 (<35) IU/L Alkaline Phosphatase 47 (38-126) U/L Total Protein 6.9 (6.3-8.2) g/dL Albumin 4.4 (3.5-5.0) g/dL Globulin 2.5 (1.7-4.1) g/dL Albumin/Globulin Ratio 1.8 (1.0-2.8) TSH 2.93 (0.47-4.68) uIU/mL Serum , Qual (Negative) Urine Color Urine Appearance Urine pH (4.5-8.0) Ur Specific [place] (1.000-1.035) Urine Protein (Negative) Urine Glucose (UA) (Negative) g/dL Urine Ketones (NEGATIVE) Urine Occult Blood (Negative) Urine Nitrate (Negative) Urine Bilirubin (NEGATIVE) Urine Urobilinogen (0.2) E.U./dL Ur Leukocyte Esterase (NEGATIVE) Urine RBC (0-5/HPF) Urine WBC (0-5/HPF) Ur Squamous Epith Cells (0-5/HPF) Urine Bacteria (None) Ur Culture Indicated? Salicylates < 1.0 (<20) mg/dL U Opiates 300ng/mL cut (Negative) Ur Oxycodone Screen (Negative) Urine Methadone Screen (Negative) Acetaminophen < 10 L (10-30) ug/mL Ur Barbiturates Screen (Negative) U Tricyclic Antidepress (Negative) Ur Phencyclidine Scrn (Negative) Ur Amphetamines Screen (Negative) U Methamphetamines Scrn (Negative) Ur MDMA Scrn (Ecstasy) (Negative) U Benzodiazepines Scrn (Negative) Urine Cocaine Screen (Negative) U Marijuana (THC) Screen (Negative) Ethyl Alcohol < 10 ( - 10) mg/dL SARS-CoV-2 (PCR) (Negative) 12/08/20 12/08/20 12/08/20 Range/Units 11:35 11:38 19:55 WBC (4.5-11.0) X10^3/uL RBC (4.0-5.2) X10^6/uL Hgb (12.0-16.0) g/dL Hct (36-46) % MCV (80-100) fL MCH (26-34) PG MCHC (30-36) % RDW (11.6-14.8) % Plt Count (150-400) X10^3/uL Neut % (Auto) (50-75) % Lymph % (Auto) (25-40) % [place] % (Auto) (3-14) % Eos % (Auto) (2-4) % Baso % (Auto) (0-2) % Neut # (Auto) (9655-2740) /uL Lymph # (Auto) (7272-4846) /uL [place] # (Auto) (0-900) /uL Eos # (Auto) (0-450) /uL Baso # (Auto) (0-100) /uL Sodium (137-145) mmol/L Potassium (3.4-5.1) mmol/L Chloride (98-107) mmol/L Carbon Dioxide (22-32) mmol/L BUN (7-17) mg/dL Creatinine (0.52-1.04) mg/dL Estimated GFR (>60) mL/min BUN/Creatinine Ratio (6-22) Glucose (70-100) mg/dL Calcium (8.4-10.2) mg/dL Total Bilirubin (0.2-1.3) mg/dL AST (14-36) IU/L ALT (<35) IU/L Alkaline Phosphatase (38-126) U/L Total Protein (6.3-8.2) g/dL Albumin (3.5-5.0) g/dL Globulin (1.7-4.1) g/dL Albumin/Globulin Ratio (1.0-2.8) TSH (0.47-4.68) uIU/mL Serum , Qual Negative (Negative) Urine Color Yellow Urine Appearance Clear Urine pH 5.0 (4.5-8.0) Ur Specific [place] 1.025 (1.000-1.035) Urine Protein Negative (Negative) Urine Glucose (UA) Negative (Negative) g/dL Urine Ketones Negative (NEGATIVE) Urine Occult Blood 3+ H (Negative) Urine Nitrate Negative (Negative) Urine Bilirubin Negative (NEGATIVE) Urine Urobilinogen 0.2 (0.2) E.U./dL Ur Leukocyte Esterase Negative (NEGATIVE) Urine RBC 1-5/hpf (0-5/HPF) Urine WBC 0-1/hpf (0-5/HPF) Ur Squamous Epith Cells 1-5 /hpf (0-5/HPF) Urine Bacteria Few (2-10) H (None) Ur Culture Indicated? Cult not indicated Salicylates (<20) mg/dL U Opiates 300ng/mL cut (Negative) Ur Oxycodone Screen (Negative) Urine Methadone Screen (Negative) Acetaminophen (10-30) ug/mL Ur Barbiturates Screen (Negative) U Tricyclic Antidepress (Negative) Ur Phencyclidine Scrn (Negative) Ur Amphetamines Screen (Negative) U Methamphetamines Scrn (Negative) Ur MDMA Scrn (Ecstasy) (Negative) U Benzodiazepines Scrn (Negative) Urine Cocaine Screen (Negative) U Marijuana (THC) Screen (Negative) Ethyl Alcohol ( - 10) mg/dL SARS-CoV-2 (PCR) Negative (Negative) 12/08/20 Range/Units 19:55 WBC (4.5-11.0) X10^3/uL RBC (4.0-5.2) X10^6/uL Hgb (12.0-16.0) g/dL Hct (36-46) % MCV (80-100) fL MCH (26-34) PG MCHC (30-36) % RDW (11.6-14.8) % Plt Count (150-400) X10^3/uL Neut % (Auto) (50-75) % Lymph % (Auto) (25-40) % [place] % (Auto) (3-14) % Eos % (Auto) (2-4) % Baso % (Auto) (0-2) % Neut # (Auto) (9672-4228) /uL Lymph # (Auto) (7033-5919) /uL [place] # (Auto) (0-900) /uL Eos # (Auto) (0-450) /uL Baso # (Auto) (0-100) /uL Sodium (137-145) mmol/L Potassium (3.4-5.1) mmol/L Chloride (98-107) mmol/L Carbon Dioxide (22-32) mmol/L BUN (7-17) mg/dL Creatinine (0.52-1.04) mg/dL Estimated GFR (>60) mL/min BUN/Creatinine Ratio (6-22) Glucose (70-100) mg/dL Calcium (8.4-10.2) mg/dL Total Bilirubin (0.2-1.3) mg/dL AST (14-36) IU/L ALT (<35) IU/L Alkaline Phosphatase (38-126) U/L Total Protein (6.3-8.2) g/dL Albumin (3.5-5.0) g/dL Globulin (1.7-4.1) g/dL Albumin/Globulin Ratio (1.0-2.8) TSH (0.47-4.68) uIU/mL Serum , Qual (Negative) Urine Color Urine Appearance Urine pH (4.5-8.0) Ur Specific [place] (1.000-1.035) Urine Protein (Negative) Urine Glucose (UA) (Negative) g/dL Urine Ketones (NEGATIVE) Urine Occult Blood (Negative) Urine Nitrate (Negative) Urine Bilirubin (NEGATIVE) Urine Urobilinogen (0.2) E.U./dL Ur Leukocyte Esterase (NEGATIVE) Urine RBC (0-5/HPF) Urine WBC (0-5/HPF) Ur Squamous Epith Cells (0-5/HPF) Urine Bacteria (None) Ur Culture Indicated? Salicylates (<20) mg/dL U Opiates 300ng/mL cut Positive H (Negative) Ur Oxycodone Screen Negative (Negative) Urine Methadone Screen Negative (Negative) Acetaminophen (10-30) ug/mL Ur Barbiturates Screen Negative (Negative) U Tricyclic Antidepress Negative (Negative) Ur Phencyclidine Scrn Negative (Negative) Ur Amphetamines Screen Positive H (Negative) U Methamphetamines Scrn Positive H (Negative) Ur MDMA Scrn (Ecstasy) Negative (Negative) U Benzodiazepines Scrn Negative (Negative) Urine Cocaine Screen Negative (Negative) U Marijuana (THC) Screen Negative (Negative) Ethyl Alcohol ( - 10) mg/dL SARS-CoV-2 (PCR) (Negative) Point of Care Testing Test Results Negative Urine Dip Bedside Urine Glucose Negative Bedside Urine Bilirubin - Negative Bedside Urine Ketone - Negative Urine Specific [place] 1.030 Bedside Urine Occult Blood +++ Bedside Urine pH 6.0 Bedside Urine Protein - Negative Bedside Urine Urobilinogen - Negative Bedside Urine Nitrite - Negative Bedside Urine Leukocytes - Negative Esterase MDM Narrative Medical decision making narrative: 40-year-old female comes in with bizarre speech, paranoia and possibly hallucinations. Patient is very difficult to follow in her train of thought. [facility] for splint is not familiar with the patient they have not seen her locally here before. There is some prior visits she has had positive for amphetamines in May of 2020 but has not had visits for similar situations in the past. She did have a visit in 2018 for suicidal ideation but no hallucinations at that time. Patient required chemical sedation she was unwilling to be evaluated or treated and appear gravely disabled here in the department unable to make decisions to maintain her safety at that time. 12/09/20. Patient is much more coherent. 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 She met with our social work job titles for options for treatment if she is interested. Patient was discharged home with referrals. She is safe, appropriate and seems competent to be discharged at this time. Discharge Plan Departure Patient Disposition: Home Clinical Impression: Methamphetamine-induced psychotic disorder Instructions: Methamphetamine Activity Restrictions/Additional Instructions: Follow up with your physician or services provided. I would recommend seeking assistance for help with stopping methamphetamine use. Included below are two different options for assistance including [facility] and [facility]. If you feel you need to go to [facility]. Call had of time ([phone]) to inquire about an available bed. If there are no beds called daily and 9 AM and 9 PM to check on bed availability. If you're feeling suicidal or having suicidal thoughts, contact the suicide hotline (this is also the number for [facility] and is available for self referral for counseling and services-please feel free to contact them for assistance). . Please return if you feel unsafe, have any thoughts harming herself or others, be having hallucinations, or any other new or concerning symptoms. Prescriptions: No Action loratadine [Claritin] 10 MG tablet 10 mg PO QDAY Qty: 90 RF: 1 Referrals: [facility] [Outside] Luis Munguia MD [Primary Care Provider] -
[2020-12-08] MEDS: LORazepam 2 MG/ML INJ 1 MG IM (11:18)
[2020-12-08] MEDS: diphenhydrAMINE 50 MG/ML VIAL IM (11:18)
[2020-12-08] MEDS: HALOPERIDOL 5 MG/ML VIAL 10 MG IM (11:18)
[2020-12-08 11:58] LABS: Add Manual Diff / Slide Review NO; Basophils Absolute Auto 0 /uL (0-100); Basophils Percent Auto 0.6 % (0-2); Eosinophils Absolute Auto 100 /uL (0-450); Eosinophils Percent Auto 2.3 % (2-4); Hematocrit 37.2 % (36-46); Hemoglobin 12.5 g/dL (12.0-16.0); Lymphocytes Absolute Auto 3100 /uL (1100-4500); Lymphocytes Percent Auto 49.2 % (25-40); Mean Corpuscular HGB Conc 33.7 % (30-36); Mean Corpuscular Hemoglobin 30.2 PG (26-34); Mean Corpuscular Volume 89.6 fL (80-100); Monocytes Absolute Auto 500 /uL (0-900); Monocytes Percent Auto 7.5 % (3-14); Neutrophils Absolute Auto 2500 /uL (1500-7000); Neutrophils Percent Auto 40.4 % (50-75); Platelet Count 296 X10^3/uL (150-400); Red Blood Cell Count 4.15 X10^6/uL (4.0-5.2); Red Cell Distribution Width 14.1 % (11.6-14.8); White Blood Cell Count 6.3 X10^3/uL (4.5-11.0)
[2020-12-08 12:11] LABS: Acetaminophen < 10 ug/mL (10-30); Alanine Aminotransferase 22 IU/L (<35); Albumin 4.4 g/dL (3.5-5.0); Albumin Globulin Ratio 1.8 (1.0-2.8); Alkaline Phosphatase 47 U/L (38-126); Aspartate Aminotransferase 29 IU/L (14-36); BUN Creatinine Ratio 33.3 (6-22); Bilirubin Total 0.2 mg/dL (0.2-1.3); Blood Urea Nitrogen 22 mg/dL (7-17); Calcium 9.3 mg/dL (8.4-10.2); Carbon Dioxide 25 mmol/L (22-32); Chloride 105 mmol/L (98-107); Estimated Glomerular Filt Rate > 60.0 mL/min (>60); Ethanol (ETOH) < 10 mg/dL; Globulin 2.5 g/dL (1.7-4.1); Glucose 110 mg/dL (70-100); HEMOLYSIS < 15 (0-50); Potassium 3.8 mmol/L (3.4-5.1); Salicylate < 1.0 mg/dL (<20); Sodium 137 mmol/L (137-145); Total Protein 6.9 g/dL (6.3-8.2)
[2020-12-08 12:14] LABS: COVID19 -Nasal RAPID Negative (Negative)
[2020-12-08 12:35] LABS: Pregnancy Test Serum,Qual Negative (Negative)
--- NOTE | 2020-12-08 12:38 | PC.NURSE ---
late entry: Pt arrived via PD. Pt uncopperative, flight of ideas, verbalized feelings of persecution. Had been assaultive to police. Hand cuffs in place. Pt unable to follow commands and made verbal threats to staff. Dr. Brown to bedside who determined pt was gravely disabled. Decision made to chemically restrain pt. Pt layed flat on stomach on bed and medicated with IM haldol, benedryl and ativan. Cuffs removed. Pt then changed to paper scrubs for safety. Belongings locked up per policy. Labs drawn and sent.
[2020-12-08 12:40] VITALS: BP 109/51; PULSE 102; RESP 16; TEMP 36.8; O2SAT 97
[2020-12-08 12:41] LABS: Thyroid Stimulating Hormone 2.93 uIU/mL (0.47-4.68)
[2020-12-08 20:36] LABS: Appearance Urine UA CLEAR; Bilirubin Urine UA NEGATIVE (NEGATIVE); Color Urine UA YELLOW; Glucose Urine UA NEGATIVE (Negative); Ketones Urine UA NEGATIVE (NEGATIVE); Leukocyte Esterase Urine UA NEGATIVE (NEGATIVE); Nitrite Urine UA NEGATIVE (Negative); Occult Blood Urine UA 3+ (Negative); Protein Urine UA NEGATIVE (Negative); Specific Gravity Urine UA 1.025 (1.000-1.035); Urobilinogen Urine UA 0.2 E.U./dL (0.2)
[2020-12-08 20:40] LABS: UR Morphine/Opiate cutoff 300 Positive (Negative); Ur Creatinine Normal (Normal); Ur Specific Gravity Normal (Normal); Urine Amphetamines Positive (Negative); Urine Barbiturates Negative (Negative); Urine Benzodiazepines Negative (Negative); Urine Cocaine Negative (Negative); Urine MDMA Negative (Negative); Urine Methadone Negative (Negative); Urine Methamphetamines Positive (Negative); Urine Oxycodone Negative (Negative); Urine Phencyclidine Negative (Negative); Urine Tetrahydrocannabinol Negative (Negative); Urine Tricyclic Antidepressant Negative (Negative); Urine pH Normal (Normal)
[2020-12-08 20:47] LABS: Bacteria Urine Few (2-10); Culture Indicated Urine Cult Not Indicated; RBC Urine 1-5/HPF (0-5/HPF); Squamous Epithelial Cell Urine 1-5 /HPF (0-5/HPF); WBC Urine 0-1/HPF (0-5/HPF)
[2020-12-08 22:20] VITALS: BP 104/50; PULSE 82; RESP 16; TEMP 36.9; O2SAT 97
--- NOTE | 2020-12-09 08:53 | PC.NURSE ---
respirations observed, door open, Reservations And Ticketing Agent monitoring
--- NOTE | 2020-12-09 11:37 | PC.NURSE ---
CODIE Rodriguez arrived and is going to assess the patient.
--- NOTE | 2020-12-09 12:07 | PC.NURSE ---
patient was seen by PAPERBOARD MACHINE OPERATOR. The plan is that she is to sleep for a little while longer then be d/c to a place 1 mile away and will be given a taxi ride there.
[2020-12-09 12:51] VITALS: BP 110/56; PULSE 96; RESP 14; TEMP 37.2; O2SAT 99
--- NOTE | 2020-12-09 12:51 | PC.NURSE ---
Patient is feeling much better. She is resting in her room and her behavior today is pleasant. She was given more orange juice
[2020-12-09 13:47] VITALS: BP 112/65; PULSE 98; RESP 16; O2SAT 98
--- NOTE | 2020-12-09 13:48 | PC.NURSE ---
patient discharge to [facility] to take her to [facility]. Voucher given
== END 2020-12-09 13:48 | disposition home or self-care (01) ==
PROVIDERS: Emergency Provider Emergency Medicine; PCP Family Medicine
DX: F15.959 Other stimulant use, unspecified with stimulant-induced psychotic disorder, unspecified (principal)
CPT/HCPCS: 36415; 80053; 80305; 80320; 80329; 81001; 81003; 81025; 84443; 84703; 85025; 87635; 96372; 99283; 99285; C9803; G0480; J1200; J1630; J2060

== ENCOUNTER 2021-05-30 08:00 | Emergency (ER) | payer OTHER, MEDICAID, SELFPAY ==
[2021-05-30 08:32] VITALS: BP 128/75; PULSE 78; RESP 16; TEMP 36.7; O2SAT 98
--- NOTE | 2021-05-30 08:32 | ED.GENADULT ---
HPI - General Adult General Chief complaint: Toxicology Problem Stated complaint: bad pain, wants referral for treatment Time Seen by Provider: 05/30/21 08:17 Source: patient and old records reviewed Mode of arrival: Ambulatory Limitations: no limitations History of Present Illness HPI narrative: This is a 41-year-old female who is asking for referral to [facility]. She is looking for a bed for the next 24 hours. Patient states that she is currently homeless. She has been trying to quit smoking. She does have a history of methamphetamine abuse. Patient states she is really just looking for safe place. She denies any other concerns or questions at this time. We did discuss if she would like a nicotine patch and she would. Related Data Previous Rx's Medication Instructions Recorded loratadine 10 mg tablet (Claritin) 10 mg PO QDAY #90 tab 05/13/13 Allergies Allergy/AdvReac Type Severity Reaction Status Date / Time Sulfa (Sulfonamide Allergy Severe HIVES/THROAT Verified 12/08/20 13:13 Antibiotics) SWELLING azithromycin Allergy Unknown Verified 12/08/20 13:13 codeine Allergy Unknown ITCHING;STOMACH Verified 12/08/20 13:13 CRAMPS etodolac Allergy Unknown Verified 12/08/20 13:13 NSAIDS (Non-Steroidal Allergy Unknown Verified 12/08/20 13:13 Anti-Inflamma [NSAIDS (NON-STEROIDAL ANTI-INFLAMMA] Review of Systems Review of Systems ROS Unobtainable: All systems reviewed & are unremarkable except as noted in HPI and below Patient History Medical History Abdominal pain Drug abuse Psychosis Social History Smoking Status: Current every day smoker Smoking Status: Current every day smoker Substance Use Type: methamphetamine Exam Narrative Exam Narrative: GENERAL: Alert and oriented x three, female in mild distress. HEENT: Head normocephalic, atraumatic, EOMI, pupils reactive, face symmetric, moist mucous membranes NECK: Supple, full range of motion CARDIOVASCULAR: Regular rate and rhythm without murmurs, rubs or gallops. RESPIRATORY: Breath sounds equal bilaterally, no wheezes rales or rhonchi. ABDOMEN: Soft, nontender. Normoactive bowel sounds all 4 quadrants. No guarding or rebound, rigidity, no mass : No CVA tenderness EXTREMITIES: Normal range of motion, no clubbing or edema. Neurovascularly intact. NEUROLOGICAL: Cranial nerves II through XII grossly intact. Moving all extremities. Normal gait. SKIN: Warm, dry, no petechiae, no rashes or lesions. Initial Vital Signs Initial Vital Signs: Vital Signs Temperature 98.1 F 05/30/21 08:32 Pulse Rate 78 05/30/21 08:32 Respiratory Rate 16 05/30/21 08:32 Blood Pressure 128/75 05/30/21 08:32 Pulse Oximetry 98 05/30/21 08:32 Course Orders Ordered: ED Orders 05/30/21 11:45 Consult to [employer] - Tracer Lathe Set Up Operator Stat Discontinued Medications Nicotine (Nicotine 21 Mg Patch) 21 mg TOP NOW ONE Stop: 05/30/21 08:38 Last Admin: 05/30/21 08:48 Dose: 21 mg Documented by: CARLA Vital Signs Vital signs: Vital Signs - 8 hr 05/30/21 11:46 Pulse Rate 76 Respiratory Rate 15 Blood Pressure 107/56 L Pulse Oximetry 99 Medical Decision Making [facility] Narrative Medical decision making narrative: Patient was requesting specifically crisis housing at [facility]. We did contact them and they no longer provide this service they offered [place] and we locally have [facility]. We did contact leave a message for them but they had not called back and after several hours discussed with patient who already has contact with them regularly and is discharged. Discharge Plan Departure Patient Disposition: Home Clinical Impression: Housing situation unstable Activity Restrictions/Additional Instructions: Follow-up with the [facility]. They may have some options for short-term housing for you. We did contact [facility] and they are no longer providing short-term emergency housing. We can have lower in our nursing home social worker reach out to contact you if he would like this although she would provide the same resources as the individual at [facility] that you provided. You can also call the emergency department at [phone] afternoon and between 8:00 p.m. Thursday through Thursday to speak with Edyta our nursing home social worker. Prescriptions: No Action loratadine [Claritin] 10 MG tablet 10 mg PO QDAY Qty: 90 RF: 1 Referrals: Luis Munguia MD [Primary Care Provider] -
[2021-05-30] MEDS: NICOTINE 21 MG PATCH TOP (08:48)
--- NOTE | 2021-05-30 11:37 | PC.NURSE ---
Pt states she frequently uses the [facility] and follows up with Otilia.
[2021-05-30 11:46] VITALS: BP 107/56; PULSE 76; RESP 15; O2SAT 99
--- NOTE | 2021-05-31 14:48 | CM.SWNOTE ---
ADMITTING CLERK F/U Note ADMITTING CLERK received consult for f/u call from ED provider Dr. Brown. It is reported that patient can be reached by contacting Otilia AGUSTIN at [facility]. ADMITTING CLERK calls Otilia at [facility] (Ph. # [phone], ext. [phone]) and leaves message requesting return call. CODIE Covarrubias
== END 2021-05-30 11:46 | disposition home or self-care (01) ==
PROVIDERS: Emergency Provider Emergency Medicine; PCP Family Medicine
DX: F17.200 Nicotine dependence, unspecified, uncomplicated (principal); Z59.0 Homelessness
CPT/HCPCS: 99282

== ENCOUNTER 2021-11-28 20:13 | Emergency (ER) | payer OTHER, MEDICAID, SELFPAY ==
[2021-11-28 20:17] VITALS: BP 115/84; PULSE 97; RESP 14; TEMP 36.8; O2SAT 100; BMI 19.3
[2021-11-28] MEDS: BUPRENORPHINE/NALOXONE 8MG/2MG 1 TAB SL (21:59)
[2021-11-28 22:01] VITALS: PULSE 86; RESP 12; O2SAT 99
--- NOTE | 2021-11-28 23:20 | PC.NURSE ---
Earing removed by another RN.
[2021-11-28 23:24] VITALS: BP 92/51; PULSE 92; RESP 16; TEMP 36.9; O2SAT 99
--- NOTE | 2021-11-28 23:25 | ED.GENADULT ---
HPI - General Adult General Chief complaint: Ear Stated complaint: earring stuck in rt ear Time Seen by Provider: 11/28/21 20:44 Source: patient Mode of arrival: Ambulatory History of Present Illness HPI narrative: 41-year-old woman with a history of methamphetamine and opiate use disorder currently trying to detox comes in complaining of right your pain with an external your cuff tight and unable to be removed from the upper helix of the right ear. She is having some redness swelling and lymphadenopathy and posterior cervical chain on the right side. She notes that she is having some hot sweats has not yet started having significant vomiting diarrhea. Is having some difficulty sleeping. She states that methamphetamine seems to be her preferred drug of choice and she tends to eat the heroin because the effects last longer. She states that she uses less than half a g a day. She has an appointment on the with [facility] to consider Suboxone dosing. She is hoping to get into 30 day rehab program. Related Data Previous Rx's Medication Instructions Recorded loratadine 10 mg tablet (Claritin) 10 mg PO QDAY #90 tab 05/13/13 buprenorphine 8 mg-naloxone 2 mg 1 film BUCCAL DAILY #5 ea 11/28/21 sublingual film (Suboxone) Allergies Allergy/AdvReac Type Severity Reaction Status Date / Time Sulfa (Sulfonamide Allergy Severe HIVES/THROAT Verified 11/28/21 20:27 Antibiotics) SWELLING azithromycin Allergy Unknown Verified 11/28/21 20:27 codeine Allergy Unknown ITCHING;STOMACH Verified 11/28/21 20:27 CRAMPS etodolac Allergy Unknown Verified 11/28/21 20:27 NSAIDS (Non-Steroidal Allergy Unknown Verified 11/28/21 20:27 Anti-Inflamma [NSAIDS (NON-STEROIDAL ANTI-INFLAMMA] Review of Systems Review of Systems Narrative: Remainder of complete review of systems is otherwise unremarkable except for that included in the HPI. Patient History Medical History (Updated 11/28/21 @ 23:34 by Missy Gordon MD) Abdominal pain Drug abuse Psychosis Social History Smoking Status: Current every day smoker Smoking Status: Current every day smoker alcohol intake frequency: holidays/special occasions only Substance Use Type: heroin and methamphetamine Exam Initial Vital Signs Initial Vital Signs: Vital Signs Temperature 98.2 F 11/28/21 20:17 Pulse Rate 97 H 11/28/21 20:17 Respiratory Rate 14 11/28/21 20:17 Blood Pressure 115/84 11/28/21 20:17 Pulse Oximetry 100 11/28/21 20:17 General: Disheveled but in no acute distress HEENT: Small helical cuff is removed from the right ear upper helix. There is some mild erythema and edema all of which is improving once the cuff is removed. She has some minor posterior cervical adenopathy on that side. At this point it does not look infected. Respiratory: Able to speak in full sentences, no obvious respiratory distress Skin: No obvious rashes, warm and dry. Hyperemic hands and fingers Neurologic: Grossly intact no obvious asymmetries or abnormalities Psych: appropriate insight and affect, cooperative, good eye contact, fluent speech Course Orders Ordered: ED Orders 11/28/21 20:29 Consult to FAST FOOD SERVICES MANAGER - Spare Person Stat Discontinued Medications Buprenorphine/Naloxone (Buprenorphine/Naloxone 8mg/2mg 1 Tab) 1 tab SL NOW ONE Stop: 11/28/21 21:27 Last Admin: 11/28/21 21:59 Dose: 1 tab Documented by: REINA Vital Signs Vital signs: Vital Signs - 8 hr 11/28/21 20:17 11/28/21 22:01 Temperature 98.2 F Pulse Rate 97 H 86 Respiratory Rate 14 12 Blood Pressure 115/84 Pulse Oximetry 100 99 Medical Decision Making [facility] Narrative Medical decision making narrative: 41-year-old woman with your drool re that is too tight and causing pain on the right helix. Removed by nursing staff without complication. No antibiotics are required at this time. We did have a nice discussion regarding her opioid and methamphetamine use disorders. She is interested in both detox and treatment. She was given 8 mg of sublingual Suboxone here in the emergency department with significant relief of the nausea and abdominal cramping. She has an appointment with [facility] for [facility] on the . She will be given 5 doses of Suboxone to use until she is able to give appointment from [facility]. She had some questions about going to detox in [place]. She did not want help without this evening but she is given the address should she choose to follow up there tomorrow. At this time she is safe for home discharge Discharge Plan Departure Patient Disposition: Home Clinical Impression: Ear pain, right, Methamphetamine use disorder, severe, Opioid use disorder Instructions: Opioid Use Disorder Activity Restrictions/Additional Instructions: Thank you for coming in today The ring that was too tight on your upper right ear was removed. There is not an infection and I suspect that that your will start feeling better now that you can get better blood flow to that portion. In the emergency room your given 8 mg of sublingual Suboxone with moderate relief of your opiate withdrawal symptoms. Please keep your appointment with [facility]. I have given you a written prescription for 5 tablets of Suboxone. It needs to be taken 1 daily, sublingual with 15 minutes to allow the medicine to be absorbed through the mucous membranes. Please do not swallow the medication it is not effective when you take it that way If you do want a follow-up with detox in [place] the clinic is called [facility]. [phone], [address] Good luck with your continued work on getting away from your opioid and methamphetamine use. Prescriptions: New buprenorphine-naloxone [Suboxone] 8-2 mg film 1 film buccal DAILY Qty: 5 0RF Rx Instructions: [id number] No Action loratadine [Claritin] 10 MG tablet 10 mg PO QDAY Qty: 90 1RF Referrals: Luis Munguia MD [Primary Care Provider] -
== END 2021-11-28 23:50 | disposition home or self-care (01) ==
PROVIDERS: Emergency Provider Emergency Medicine; PCP Family Medicine
DX: H92.01 Otalgia, right ear (principal); F15.10 Other stimulant abuse, uncomplicated; F11.10 Opioid abuse, uncomplicated; F17.200 Nicotine dependence, unspecified, uncomplicated
CPT/HCPCS: 99283

== ENCOUNTER 2022-06-16 02:44 | Emergency (ER) | payer OTHER, MEDICAID, SELFPAY ==
[2022-06-16 02:50] VITALS: BP 160/79; PULSE 103; RESP 18; TEMP 36.7; O2SAT 97
--- NOTE | 2022-06-16 02:54 | ED.HA ---
HPI - Headache General Chief Complaint: Headache Stated Complaint: headache Time Seen by Provider: 06/16/22 02:47 Source: patient Mode of arrival: Ambulatory Limitations: no limitations History of Present Illness HPI Narrative: Patient is a 42-year-old female who is here for evaluation to get ?checked out? after she stated that she had a sharp pinpoint pain behind her right eye which caused some blurry vision. Her symptoms have improved. There was no trauma. No sore throat. She had an ear infection in the past caused by an earring and she was concerned about that as well. Has not tried anything for symptoms prior to arrival. Related Data Previous Rx's Medication Instructions Recorded loratadine 10 mg tablet (Claritin) 10 mg PO QDAY #90 tabs 05/13/13 buprenorphine 8 mg-naloxone 2 mg 1 film buccal DAILY #5 ea 11/28/21 sublingual film (Suboxone) Allergies Allergy/AdvReac Type Severity Reaction Status Date / Time Sulfa (Sulfonamide Allergy Severe HIVES/THROAT Verified 11/28/21 20:27 Antibiotics) SWELLING azithromycin Allergy Unknown Verified 11/28/21 20:27 codeine Allergy Unknown ITCHING;STOMACH Verified 11/28/21 20:27 CRAMPS etodolac Allergy Unknown Verified 11/28/21 20:27 NSAIDS (Non-Steroidal Allergy Unknown Verified 11/28/21 20:27 Anti-Inflamma [NSAIDS (NON-STEROIDAL ANTI-INFLAMMA] Review of Systems Constitutional Constitutional: Reports system reviewed and no additional complaints, except as documented Eyes Eyes: Reports system reviewed and no additional complaints, except as documented ENT Ears, Nose, Mouth, and Throat: Reports system reviewed and no additional complaints, except as documented Neurologic Neurologic: Reports system reviewed and no additional complaints, except as documented Patient History Medical History Abdominal pain Drug abuse Psychosis Social History Smoking Status: Current every day smoker Smoking Status: Current every day smoker tobacco type: cigarettes alcohol intake frequency: holidays/special occasions only Substance Use Type: heroin and methamphetamine Exam Initial Vital Signs Initial Vital Signs: Vital Signs Temperature 98.0 F 06/16/22 02:50 Pulse Rate 103 H 06/16/22 02:50 Respiratory Rate 18 06/16/22 02:50 Blood Pressure 160/79 H 10/03/22 02:50 Pulse Oximetry 97 06/16/22 02:50 Oxygen Delivery Method 06/16/22 02:50 Const General: cooperative and disheveled HENMT Head: normal to inspection and normocephalic Ears: hearing grossly normal bilaterally Face and sinus: normal facial exam Eyes Pupils: PERRL EOM: EOM intact bilaterally Skin General: no rashes or lesions noted Neuro General: patient alert and patient awake Course Orders Ordered: Acetaminophen (Acetaminophen 325 Mg Tablet) 650 mg PO NOW ONE Stop: 06/16/22 02:56 Vital Signs Vital signs: Vital Signs - 8 hr 06/16/22 02:50 Temperature 98.0 F Pulse Rate 103 H Respiratory Rate 18 Blood Pressure 160/79 H Pulse Oximetry 97 Oxygen Delivery Method Room Air MDM - Headache MDM Narrative Medical decision making narrative: Symptoms have already improved. No fevers. No objective findings found on exam. No indication for radiologic studies. Provided Tylenol per the patient's request. Discharge patient home with return precautions. Discharge Plan Departure Patient Disposition: Home Clinical Impression: Headache Instructions: DI for Headache Prescriptions: No Action loratadine [Claritin] 10 MG tablet 10 mg PO QDAY Qty: 90 1RF buprenorphine-naloxone [Suboxone] 8-2 mg film 1 film buccal DAILY Qty: 5 0RF Rx Instructions: [id number] Referrals: Luis Munguia MD [Primary Care Provider] -
[2022-06-16] MEDS: ACETAMINOPHEN 325 MG TABLET 650 MG PO (02:58)
== END 2022-06-16 03:02 | disposition home or self-care (01) ==
PROVIDERS: Emergency Provider Emergency Medicine; PCP Family Medicine
DX: R51.9 Headache, unspecified (principal)
CPT/HCPCS: 99282; 99283

== ENCOUNTER 2022-06-17 06:34 | Emergency (ER) | payer OTHER, MEDICAID, SELFPAY ==
--- NOTE | 2022-06-17 06:37 | ED_ITS ---
HPI - Headache General Chief Complaint: Headache Stated Complaint: Headache Time Seen by Provider: 06/17/22 06:36 History of Present Illness HPI Narrative: 42-year-old female smoker with history of migraines presents with a chief complaint of a mild right-sided headache. She states that it feels like prior headaches that normally go away with Tylenol though she has none at home so she is here. She denies any obvious head injuries or trauma. She denies any neck pain and has had no fever or chills. She takes no blood thinners. She states that her head seems to be a bit worse with loud noise but denies any other obvious triggers. She is had no neurologic symptoms such as numbness, tingling or weakness. She denies nausea, vomiting or diarrhea. She is not dizzy or lightheaded. She was seen and evaluated last night and thought to have a mild headache with low risk features and encouraged to get [id number] Tylenol and Motrin. She was unable to do so last night and is here asking for a dose. She denies blurred or double vision, she denies any redness, watering or pain in her eye Related Data Previous Rx's Medication Instructions Recorded loratadine 10 mg tablet (Claritin) 10 mg PO QDAY #90 tabs 05/13/13 buprenorphine 8 mg-naloxone 2 mg 1 film buccal DAILY #5 ea 11/28/21 sublingual film (Suboxone) Allergies Allergy/AdvReac Type Severity Reaction Status Date / Time Sulfa (Sulfonamide Allergy Severe HIVES/THROAT Verified 11/28/21 20:27 Antibiotics) SWELLING azithromycin Allergy Unknown Verified 11/28/21 20:27 codeine Allergy Unknown ITCHING;STOMACH Verified 11/28/21 20:27 CRAMPS etodolac Allergy Unknown Verified 11/28/21 20:27 NSAIDS (Non-Steroidal Allergy Unknown Verified 11/28/21 20:27 Anti-Inflamma [NSAIDS (NON-STEROIDAL ANTI-INFLAMMA] Review of Systems Review of Systems Narrative: GENERAL: Denies chills, fatigue, malaise, fever, sweats. HEENT: Denies sinus pain, ear pain, sore throat, difficulty swallowing, dizziness. RESPIRATORY: Denies dyspnea, cough, wheezing, hemoptysis, sputum. CARDIOVASCULAR: Denies chest pain, palpitations, orthopnea, edema, GASTROINTESTINAL: Denies nausea, vomiting, abdominal pain, diarrhea, constipation, melena. : Denies dysuria, frequency, incontinence, hematuria, urinary retention. MUSCULOSKELETAL: denies weakness, joint pain, or bony pain SKIN: Denies rash, skin lesions, or other NEUROLOGIC: See HPI PSYCHIATRIC: No concerning psychosocial issues. 12 point review of systems is negative except for those stated above Patient History Medical History (Updated 06/17/22 @ 07:20 by Cecil Fong DO) Abdominal pain Drug abuse Psychosis Social History Smoking Status: Current every day smoker Smoking Status: Current every day smoker tobacco type: cigarettes alcohol intake frequency: holidays/special occasions only Substance Use Type: heroin and methamphetamine Exam Narrative Exam Narrative: GENERAL: [42] year old patient appears stated age. Well-developed patient, in mild distress. Sitting upright in a well-lit room HEAD: Atraumatic. Normocephalic. No tenderness over temples EYES: Pupils equal round and reactive. Extraocular motions intact. No scleral icterus. No injection or drainage. ENT: Nose without bleeding, purulent drainage. Throat without erythema, tonsil lar hypertrophy or exudate. Airway patent. NECK: Trachea midline. Non tender, no meningeal signs CARDIOVASCULAR: Regular rate and rhythm without murmurs, gallops, or rubs. RESPIRATORY: Clear to auscultation. Breath sounds equal bilaterally. No wheezes, rales, or rhonchi. GASTROINTESTINAL: Abdomen soft, non-tender, nondistended. EXTREMITIES: No edema or joint tenderness. BACK: Nontender without deformity or crepitance. No flank tenderness. NEURO: AOx3. Cranial nerves 2-12 grossly intact SKIN: No rash or erythema of visible areas NIH Stroke Scale 1a. LOC: Patient is alert and keenly responsive (0) 1b. LOC Questions: Patient answers both LOC questions accurately (0) 1c. LOC Commands: Patient performs both tasks correctly (0) 2. Best Gaze: Normal (0) 3. Visual: No visual loss (0) 4. Facial palsy: Normal symmetrical movements (0) 5. Motor arm: No drift (0) 6. Motor leg: No drift (0) 7. Limb ataxia: Absent (0) 8. Sensory: Normal (0) 9. Best language: No aphasia; normal (0) 10. Dysarthria: Normal (0) 11. Extinction and inattention: No abnormality (0) NIHSS: 0 Initial Vital Signs Initial Vital Signs: Vital Signs Temperature 98 F 06/17/22 06:40 Pulse Rate 98 H 06/17/22 06:40 Respiratory Rate 18 06/17/22 06:40 Blood Pressure 119/76 06/17/22 06:40 Pulse Oximetry 100 06/17/22 06:40 Oxygen Delivery Method 06/17/22 06:40 Course Orders Ordered: Discontinued Medications Acetaminophen (Acetaminophen 325 Mg Tablet) 650 mg PO NOW ONE Stop: 06/17/22 06:52 Vital Signs Vital signs: Vital Signs - 8 hr 06/17/22 06:40 Temperature 98 F Pulse Rate 98 H Respiratory Rate 18 Blood Pressure 119/76 Pulse Oximetry 100 Oxygen Delivery Method Room Air MDM - Headache MDM Narrative Medical decision making narrative: Headache considerations include, but not limited to: Subarachnoid hemorrhage, but unlikely as patient denies sudden onset of pain, not worst of life, or neck pain Meningitis considered, but thought unlikely given lack of Brudzinski's, Kernig's sign, altered mental status or fever Giant cell arteritis considered, but thought unlikely given lack of unilateral findings, pain in restoration, vision change HTN Emergency considered, but thought unlikely given normal vitals Other serious diagnoses considered unlikely given lack of red flag findings such as sudden onset, increasing frequency, immunocompromise, systemic signs (fever, chills, stiff neck, or rash), focal neurologic findings, trauma, blood thinners, etc. Patient thought to be low risk, discussed a more involved workup but we sure the opinion that is not indicated at this time. She is given extensive return precautions and questions answered to her apparent satisfaction Discharge Plan Departure Patient Disposition: Home Clinical Impression: Headache Instructions: DI for Headache Activity Restrictions/Additional Instructions: *You have been diagnosed with [ Headache ] *What to do: *Take medications as directed *Follow up with your primary care provider in 2-3 days, call for an appointment. Let them know you were seen in the Emergency Department and that we ask that you be seen in follow up *Return to ER if you should have any new, worsening or concerning symptoms, such as [ fever > 101F, neck pain or stiffness, vomiting, confusion, seizure, focal weakness, vision change, speech deficit or other concerning symptoms ] Prescriptions: No Action loratadine [Claritin] 10 MG tablet 10 mg PO QDAY Qty: 90 1RF buprenorphine-naloxone [Suboxone] 8-2 mg film 1 film buccal DAILY Qty: 5 0RF Rx Instructions: [id number] Referrals: Luis Munguia MD [Primary Care Provider] -
[2022-06-17 06:40] VITALS: BP 119/76; PULSE 98; RESP 18; TEMP 36.6; O2SAT 100
[2022-06-17] MEDS: ACETAMINOPHEN 325 MG TABLET 650 MG PO (07:24)
== END 2022-06-17 07:29 | disposition home or self-care (01) ==
PROVIDERS: Emergency Provider Emergency Medicine; PCP Family Medicine
DX: R51.9 Headache, unspecified (principal)
CPT/HCPCS: 99282; 99283

== ENCOUNTER 2023-07-23 13:00 | Emergency (ER) | payer OTHER, MEDICAID, SELFPAY ==
[2023-07-23 13:10] VITALS: BP 142/82; PULSE 104; RESP 20; TEMP 37; O2SAT 99; BMI 19.6
--- NOTE | 2023-07-23 13:41 | ED.RECABL ---
HPI - Recheck/Abnormal Lab/Rx <Silvia Thomas PA-C - Last Filed: 07/23/23 14:14> General Chief Complaint: Recheck/Abnormal Lab/Rx Stated Complaint: headach/allergies/ wanting some tylenol Time Seen by Provider: 07/23/23 13:23 Source: patient Mode of arrival: Ambulatory History of Present Illness HPI narrative: 43-year-old woman between housing presents with concern for seasonal allergies. Patient states she is had seasonal allergies acting up for the last couple of weeks with clear runny nose and dry eyes. She states she usually gets seasonal allergies this time of year and this feels the same to her as it typically does. 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 She states she recently started a new thyroid medication that is following with her PCP for that. She has no other complaints or concerns does not feel that this is a sinus infection she has not been having headaches or intense sinus pressure; would like Tylenol she thinks that maybe a headache could come on if she does not take some soon. Denies fevers chills nausea vomiting cough or other symptoms. Patient is also requesting a possible a [place] pass for the [place] very. Related Data Previous Rx's Medication Instructions Recorded loratadine 10 mg tablet (Claritin) 10 mg PO QDAY #90 tabs 05/13/13 buprenorphine 8 mg-naloxone 2 mg 1 film buccal DAILY #5 ea 11/28/21 sublingual film (Suboxone) acetaminophen 325 mg tablet (Pain 325 mg PO QID PRN pain #20 tabs 07/23/23 Reliever (acetaminophen)) loratadine 10 mg tablet 10 mg PO DAILY PRN allergic 07/23/23 symptoms #30 tabs Allergies Allergy/AdvReac Type Severity Reaction Status Date / Time Sulfa (Sulfonamide Allergy Severe HIVES/THROAT Verified 07/23/23 13:16 Antibiotics) SWELLING azithromycin Allergy Unknown Verified 07/23/23 13:16 codeine Allergy Unknown ITCHING;STOMACH Verified 07/23/23 13:16 CRAMPS etodolac Allergy Unknown Verified 11/28/21 20:27 NSAIDS (Non-Steroidal Allergy Unknown Verified 07/23/23 13:16 Anti-Inflamma [NSAIDS (NON-STEROIDAL ANTI-INFLAMMA] Review of Systems <Silvia Thomas PA-C - Last Filed: 07/23/23 14:14> Review of Systems Narrative: See HPI Patient History <Silvia Thomas PA-C - Last Filed: 07/23/23 14:14> Medical History (Updated 07/23/23 @ 13:49 by Silvia Thomas PA-C) Psychosis Drug abuse Abdominal pain Social History Smoking Status: Current every day smoker Smoking Status: Current every day smoker tobacco type: cigarettes alcohol intake frequency: holidays/special occasions only Substance Use Type: heroin and methamphetamine Exam <Silvia Thomas PA-C - Last Filed: 07/23/23 14:14> Narrative Exam Narrative: GENERAL: 43 year old patient appears stated age. Well-developed patient, in mild distress. HEAD: Atraumatic. Normocephalic. EYES: Pupils equal round and reactive. Extraocular motions intact. No scleral icterus. No injection or drainage. ENT: Nose without bleeding, purulent drainage. Throat with mild erythema of the tonsillar pillars, without tonsillar hypertrophy or exudate. Airway patent. No maxillary or frontal sinus tenderness with palpation or percussion NECK: Trachea midline. Non tender CARDIOVASCULAR: Slightly rapid, Regular rate and rhythm without murmurs, gallops, or rubs. RESPIRATORY: Clear to auscultation. Breath sounds equal bilaterally. No wheezes, rales, or rhonchi. GASTROINTESTINAL: Abdomen nondistended. EXTREMITIES: Moving all extremities normal gait NEURO: AOx3. SKIN: No rash or erythema of visible areas Initial Vital Signs Initial Vital Signs: Vital Signs Temperature 98.6 F 07/23/23 13:10 Pulse Rate 104 H 07/23/23 13:10 Respiratory Rate 20 07/23/23 13:10 Blood Pressure 142/82 H 07/23/23 13:10 Pulse Oximetry 99 07/23/23 13:10 Oxygen Delivery Method Room Air 07/23/23 13:10 <Alek Henson MD - Last Filed: 08/03/23 07:24> Initial Vital Signs Initial Vital Signs: Vital Signs Temperature 98.6 F 07/23/23 13:10 Pulse Rate 104 H 07/23/23 13:10 Respiratory Rate 20 07/23/23 13:10 Blood Pressure 142/82 H 07/23/23 13:10 Pulse Oximetry 99 07/23/23 13:10 Oxygen Delivery Method Room Air 07/23/23 13:10 Course <Silvia Thomas PA-C - Last Filed: 07/23/23 14:14> Orders Ordered: Discontinued Medications Acetaminophen (Acetaminophen 325 Mg Tablet) 650 mg PO NOW ONE Stop: 07/23/23 13:38 Last Admin: 07/23/23 13:49 Dose: 650 mg Documented By: LEYDA Loratadine (Loratadine 10 Mg Tablet) 10 mg PO NOW ONE Stop: 07/23/23 13:38 Last Admin: 07/23/23 13:50 Dose: 10 mg Documented By: LEYDA Vital Signs Vital signs: Vital Signs - 8 hr 07/23/23 13:10 07/23/23 13:56 Temperature 98.6 F Pulse Rate 104 H 90 Respiratory Rate 20 16 Blood Pressure 142/82 H 142/83 H Pulse Oximetry 99 99 Oxygen Delivery Method Room Air Room Air <Alek Henson MD - Last Filed: 08/03/23 07:24> Orders Ordered: Discontinued Medications Acetaminophen (Acetaminophen 325 Mg Tablet) 650 mg PO NOW ONE Stop: 07/23/23 13:38 Last Admin: 07/23/23 13:49 Dose: 650 mg Documented By: LEYDA Loratadine (Loratadine 10 Mg Tablet) 10 mg PO NOW ONE Stop: 07/23/23 13:38 Last Admin: 07/23/23 13:50 Dose: 10 mg Documented By: BS Vital Signs Vital signs: Vital Signs - 8 hr 07/23/23 13:10 07/23/23 13:56 Temperature 98.6 F Pulse Rate 104 H 90 Respiratory Rate 20 16 Blood Pressure 142/82 H 142/83 H Pulse Oximetry 99 99 Oxygen Delivery Method Room Air Room Air MDM - Recheck/Abnormal Lab/Rx <Silvia Thomas PA-C - Last Filed: 07/23/23 14:14> Differential Diagnosis Differential diagnosis: Likely encounter for medication refill and other (Seasonal allergies) Medical Records Attestation: I reviewed the patient's medical records. Treatment and disposition Shared decision making:: Shared decision-making was used in determining patient's plan of care in the emergency department plan for outpatient follow-up. MDM Narrative Medical decision making narrative: This is a generally well-appearing 43-year-old woman with a history of mild intermittent asthma, migraines, delusions and hallucinations who presents with concern for seasonal allergies wanting some Tylenol and Claritin today. Patient is with a fairly unremarkable exam and her history is consistent with seasonal allergies. She is appropriate today with normal conversation and interaction. I have low suspicion for bacterial sinusitis at this time. She is provided with 650 of Tylenol as well as 10 mg loratadine today in the ER and prescription for these as well. 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 Return precautions provided, follow-up plan discussed, all questions answered. Discharge Plan Departure Patient Disposition: Home Clinical Impression: Seasonal allergies Activity Restrictions/Additional Instructions: *You have been diagnosed with 43 *What to do: *Please continue to take your regular medications as directed. [ 2] New medication prescriptions sent to your pharmacy: [Loratadine and Tylenol] [ ] New medication written as a paper prescription [ ] No new medications given * you came in today with concern for wanting some medication for seasonal allergies which has been a problem for you in the past and what she had been dealing with for the last few weeks. Please follow up with your primary care provider in 2-3 days, call for an appointment. Let them know you were seen in the Emergency Department and that we ask that you be seen in follow up. We will electronically transmit a record of today's note if your PCP is in our system. We did send you a prescription for Tylenol/acetaminophen as well as loratadine. And provided you with a dose of each of these today in the emergency department. If your symptoms do worsen and you start having fevers nausea or sinus pressure headaches over time this could indicate a sinus infection and make sure you get re-evaluated. Hope you feel better soon. *If you do not have a primary care provider please contact the [facility] Resource line at [phone]. They will ask some questions about your medical history and help get you set up with a doctor in the community. *Return to Emergency Department if you should have any new, worsening or concerning symptoms, such as [fever greater than 101 F, shaking chills, worsening pain, persistent vomiting or other bothersome symptoms] Prescriptions: New loratadine 10 mg tablet 10 mg PO DAILY PRN (Reason: allergic symptoms) Qty: 30 1RF acetaminophen [Pain Reliever (acetaminophen)] 325 mg tablet 325 mg PO QID PRN (Reason: pain) Qty: 20 0RF No Action loratadine [Claritin] 10 MG tablet 10 mg PO QDAY Qty: 90 1RF buprenorphine-naloxone [Suboxone] 8-2 mg film 1 film buccal DAILY Qty: 5 0RF Rx Instructions: [id number] Referrals: Luis Munguia MD [Primary Care Provider] - Stand Alone Forms: Patient Portal/API ED Sign-out <Alek Henson MD - Last Filed: 08/03/23 07:24> Cosign ED Attending Cosignature Attestation: I was immediately available in the department for consultation. ?This documentation has been reviewed and I agree with assessment and plan. Supervised by Alek Henson MD
[2023-07-23] MEDS: ACETAMINOPHEN 325 MG TABLET 650 MG PO (13:49)
[2023-07-23] MEDS: LORATADINE 10 MG TABLET PO (13:50)
[2023-07-23 13:56] VITALS: BP 142/83; PULSE 90; RESP 16; O2SAT 99
== END 2023-07-23 13:57 | disposition home or self-care (01) ==
PROVIDERS: Emergency Provider Student in an Organized Health Care Education/Training Program; PCP Family Medicine
DX: J30.2 Other seasonal allergic rhinitis (principal)
CPT/HCPCS: 99283

== ENCOUNTER 2024-02-01 23:29 | Emergency (ER) | payer OTHER, MEDICAID, SELFPAY ==
[2024-02-01 23:40] VITALS: BP 135/61; PULSE 82; RESP 16; TEMP 36.8; O2SAT 100; BMI 22.8
--- NOTE | 2024-02-02 03:21 | ED.SKABFB ---
HPI - Skin/Abscess/Foreign Bdy General Chief complaint: Skin/Abscess/Foreign Body Stated complaint: might have spider bite on neck Source: patient Mode of arrival: Ambulatory Limitations: no limitations History of Present Illness HPI narrative: Patient left ED without seeing provider Related Data Previous Rx's Medication Instructions Recorded loratadine 10 mg tablet (Claritin) 10 mg PO QDAY #90 tabs 05/13/13 buprenorphine 8 mg-naloxone 2 mg 1 film buccal DAILY #5 ea 11/28/21 sublingual film (Suboxone) acetaminophen 325 mg tablet (Pain 325 mg PO QID PRN pain #20 tabs 07/23/23 Reliever (acetaminophen)) loratadine 10 mg tablet 10 mg PO DAILY PRN allergic 07/23/23 symptoms #30 tabs Allergies Allergy/AdvReac Type Severity Reaction Status Date / Time Sulfa (Sulfonamide Allergy Severe HIVES/THROAT Verified 07/23/23 13:16 Antibiotics) SWELLING azithromycin Allergy Unknown Verified 07/23/23 13:16 codeine Allergy Unknown ITCHING;STOMACH Verified 07/23/23 13:16 CRAMPS etodolac Allergy Unknown Verified 11/28/21 20:27 NSAIDS (Non-Steroidal Allergy Unknown Verified 07/23/23 13:16 Anti-Inflamma [NSAIDS (NON-STEROIDAL ANTI-INFLAMMA] Patient History Medical History (Updated 02/02/24 @ 00:40 by Wes Elkins RN) Psychosis Drug abuse Abdominal pain Social History Smoking Status: Current every day smoker Smoking Status: Current every day smoker tobacco type: cigarettes alcohol intake frequency: holidays/special occasions only Substance Use Type: heroin, methamphetamine and other Exam Initial Vital Signs Initial Vital Signs: Vital Signs Temperature 98.3 F 02/01/24 23:40 Pulse Rate 82 02/01/24 23:40 Respiratory Rate 16 02/01/24 23:40 Blood Pressure 135/61 02/01/24 23:40 Pulse Oximetry 100 02/01/24 23:40 Oxygen Delivery Method Room Air 02/01/24 23:40 Course Vital Signs Vital signs: Vital Signs - 8 hr 02/01/24 23:40 Temperature 98.3 F Pulse Rate 82 Respiratory Rate 16 Blood Pressure 135/61 Pulse Oximetry 100 Oxygen Delivery Method Room Air Discharge Plan Departure Patient Disposition: Left Without Being Seen Clinical Impression: Patient left without being seen Prescriptions: No Action loratadine [Claritin] 10 MG tablet 10 mg PO QDAY Qty: 90 1RF buprenorphine-naloxone [Suboxone] 8-2 mg film 1 film buccal DAILY Qty: 5 0RF Rx Instructions: [id number] loratadine 10 mg tablet 10 mg PO DAILY PRN (Reason: allergic symptoms) Qty: 30 1RF acetaminophen [Pain Reliever (acetaminophen)] 325 mg tablet 325 mg PO QID PRN (Reason: pain) Qty: 20 0RF
== END 2024-02-02 00:23 | disposition left against medical advice (07) ==
PROVIDERS: Emergency Provider Emergency Medicine; PCP Family Medicine
DX: Z53.21 Procedure and treatment not carried out due to patient leaving prior to being seen by health care provider (principal)
CPT/HCPCS: 99281

== ENCOUNTER 2024-02-02 08:38 | Emergency (ER) | payer OTHER, MEDICAID, SELFPAY ==
[2024-02-02 08:48] VITALS: BP 117/73; PULSE 77; RESP 16; TEMP 37; O2SAT 99; BMI 19.9
--- NOTE | 2024-02-02 11:32 | PC.NURSE ---
Patient not present in waiting room when called twice. Provider made aware. Will VDC at this time.
== END 2024-02-02 11:39 | disposition left against medical advice (07) ==
PROVIDERS: Emergency Provider Student in an Organized Health Care Education/Training Program; PCP Family Medicine
DX: R51.9 Headache, unspecified (principal)
CPT/HCPCS: 99281

== ENCOUNTER 2024-10-17 11:08 | Emergency (ER) | payer SELFPAY ==
[2024-10-17 11:10] VITALS: BP 131/58; PULSE 72; RESP 18; TEMP 36.7; O2SAT 99; BMI 18.6
--- NOTE | 2024-10-17 11:23 | PC.NURSE ---
Pt slipped and fell 3 days ago hitting her forehead; since then she has developed swelling and pus/clear discharge and pain. Has tried warm compresses on the eye without much relief and endorses blurry vision. Pt is unhoused. uses meth and fentanyl for pain control which she states has not helped
--- NOTE | 2024-10-17 12:17 | ED.EYEPROB ---
HPI - Eye Problem <Marley Jones PA-C - Last Filed: 10/17/24 16:08> General Chief complaint: Eye Problems Stated complaint: right eye swollen and pain Time Seen by Provider: 10/17/24 11:54 Source: patient Mode of arrival: Ambulatory History of Present Illness HPI Narrative: Ms. Carrillo is a pleasant 44-year-old female who denies any past medical history, currently on house, who presents to the emergency department for right eye swelling and drainage x1 week. Patient states she had a fall with a forehead abrasion and since then has had some redness, swelling, drainage from the right eye. Denies any direct trauma to the eye or any foreign body to the right eye. States that the right upper eyelid is very swollen and she has some discharge in the eye itself. States the discharge does cause her vision to be slightly blurry but otherwise her vision is normal. No pain with movement of the eye. She has tried warm compress without relief. She does smoke fentanyl, cigarettes, vape. Related Data Previous Rx's Medication Instructions Recorded loratadine 10 mg tablet (Claritin) 10 mg PO QDAY #90 tabs 05/13/13 buprenorphine 8 mg-naloxone 2 mg 1 film buccal DAILY #5 ea 11/28/21 sublingual film (Suboxone) acetaminophen 325 mg tablet (Pain 325 mg PO QID PRN pain #20 tabs 07/23/23 Reliever (acetaminophen)) loratadine 10 mg tablet 10 mg PO DAILY PRN allergic 07/23/23 symptoms #30 tabs amoxicillin 875 mg-potassium 1 tab PO Q12H 7 days #14 tabs 10/17/24 clavulanate 125 mg tablet doxycycline hyclate 100 mg capsule 100 mg PO BID 7 days #14 caps 10/17/24 erythromycin 5 mg/gram (0.5 %) eye 1 cm EYE-RIGHT 6XD 7 days #3.5 10/17/24 ointment grams Allergies Allergy/AdvReac Type Severity Reaction Status Date / Time Sulfa (Sulfonamide Allergy Severe HIVES/THROAT Verified 07/23/23 13:16 Antibiotics) SWELLING azithromycin Allergy Unknown Verified 07/23/23 13:16 codeine Allergy Unknown ITCHING;STOMACH Verified 07/23/23 13:16 CRAMPS etodolac Allergy Unknown Verified 11/28/21 20:27 NSAIDS (Non-Steroidal Allergy Unknown Verified 07/23/23 13:16 Anti-Inflamma [NSAIDS (NON-STEROIDAL ANTI-INFLAMMA] Review of Systems <Marley Jones PA-C - Last Filed: 10/17/24 16:08> Review of Systems ROS Unobtainable: All systems reviewed & are unremarkable except as noted in HPI and below Patient History <Marley Jnoes PA-C - Last Filed: 10/17/24 16:08> Medical History (Updated 10/17/24 @ 13:18 by Marley Jones PA-C) Psychosis Drug abuse Abdominal pain Social History Smoking Status: Current every day smoker Smoking Status: Current every day smoker tobacco type: cigarettes alcohol intake frequency: 0-2 drinks per day Exam <Marley Jones PA-C - Last Filed: 10/17/24 16:08> Narrative Exam Narrative: GENERAL: 44 year old patient appears stated age. In no acute distress. HEAD: Atraumatic. Normocephalic. EYES: PERRL - 3mm. Extraocular motions intact. No pain with extraocular motions. Right upper eyelid erythematous and edematous with Chalazion. No erythema of surrounding periorbital skin. Mild injection of conjunctivae. Fluorescein exam: No corneal abrasions or fluorescein uptake. NECK: Trachea midline. Cervical ROM intact. CARDIOVASCULAR: Regular rate RESPIRATORY: ?Nonlabored respirations. ?Speaking in clear, full sentences. ? NEURO: AOx3. ?Clear speech. ?Moves all 4 extremities appropriately. SKIN: No rash or erythema of visible areas Initial Vital Signs Initial Vital Signs: Vital Signs Temperature 98.1 F 10/17/24 11:10 Pulse Rate 72 10/17/24 11:10 Respiratory Rate 18 10/17/24 11:10 Blood Pressure 131/58 L 10/17/24 11:10 Pulse Oximetry 99 10/17/24 11:10 Oxygen Delivery Method Room Air 10/17/24 11:10 <Lizeth Brown DO - Last Filed: 10/17/24 18:49> Initial Vital Signs Initial Vital Signs: Vital Signs Temperature 98.1 F 10/17/24 11:10 Pulse Rate 72 10/17/24 11:10 Respiratory Rate 18 10/17/24 11:10 Blood Pressure 131/58 L 10/17/24 11:10 Pulse Oximetry 99 10/17/24 11:10 Oxygen Delivery Method Room Air 10/17/24 11:10 Course <Marley Jones PA-C - Last Filed: 10/17/24 16:08> Orders Ordered: ED Orders 10/17/24 11:17 [place] [facility] [place] Electrical Engineer Stat Discontinued Medications Amoxicillin/Clavulanate Potassium (Amoxicillin/Clav 875/125 Mg) 1 tab PO NOW ONE Stop: 10/17/24 13:09 Last Admin: 10/17/24 13:15 Dose: 1 tab Documented By: CTS Doxycycline Hyclate (Doxycycline Hyclate 100 Mg Tablet) 100 mg PO NOW ONE Stop: 10/17/24 13:09 Last Admin: 10/17/24 13:16 Dose: 100 mg Documented By: CTS Erythromycin (Erythromycin Ophth 1 Gm Oint) 1 applic EYE-RIGHT NOW ONE Stop: 10/17/24 13:09 Last Admin: 10/17/24 13:16 Dose: 1 applic Documented By: CTS Fluorescein Sodium (Fluorescein 1 Mg Strip) 1 mg EYE-RIGHT NOW ONE Stop: 10/17/24 12:31 Last Admin: 10/17/24 12:54 Dose: 1 mg Documented By: CTS Proparacaine HCl (Proparacaine 0.5% Ophth Tram) 1 drops EYE-RIGHT NOW ONE Stop: 10/17/24 12:31 Last Admin: 10/17/24 12:54 Dose: 1 drop Documented By: CTS Vital Signs Vital signs: Vital Signs - 8 hr 10/17/24 11:10 Temperature 98.1 F Pulse Rate 72 Respiratory Rate 18 Blood Pressure 131/58 L Pulse Oximetry 99 Oxygen Delivery Method Room Air <Lizeth Brown DO - Last Filed: 10/17/24 18:49> Orders Ordered: ED Orders 10/17/24 11:17 Consult to [facility] [place] Principal Electrical Engineer Stat Discontinued Medications Amoxicillin/Clavulanate Potassium (Amoxicillin/Clav 875/125 Mg) 1 tab PO NOW ONE Stop: 10/17/24 13:09 Last Admin: 10/17/24 13:15 Dose: 1 tab Documented By: CTS Doxycycline Hyclate (Doxycycline Hyclate 100 Mg Tablet) 100 mg PO NOW ONE Stop: 10/17/24 13:09 Last Admin: 10/17/24 13:16 Dose: 100 mg Documented By: ARCHANA Erythromycin (Erythromycin Ophth 1 Gm Oint) 1 applic EYE-RIGHT NOW ONE Stop: 10/17/24 13:09 Last Admin: 10/17/24 13:16 Dose: 1 applic Documented By: ARCHANA Fluorescein Sodium (Fluorescein 1 Mg Strip) 1 mg EYE-RIGHT NOW ONE Stop: 10/17/24 12:31 Last Admin: 10/17/24 12:54 Dose: 1 mg Documented By: ARCHANA Proparacaine HCl (Proparacaine 0.5% Ophth Tram) 1 drops EYE-RIGHT NOW ONE Stop: 10/17/24 12:31 Last Admin: 10/17/24 12:54 Dose: 1 drop Documented By: ARCHANA Vital Signs Vital signs: Vital Signs - 8 hr 10/17/24 11:10 Temperature 98.1 F Pulse Rate 72 Respiratory Rate 18 Blood Pressure 131/58 L Pulse Oximetry 99 Oxygen Delivery Method Room Air MDM - Eye Problem <Marley Jones PA-C - Last Filed: 10/17/24 16:08> Medical Records Attestation: I reviewed the patient's medical records. MDM Narrative Medical decision making narrative: 44-year-old female who denies any past medical history, currently unhoused, who presents to the emergency department for right eye swelling and drainage x1 week. Differential diagnosis includes but is not limited to chalazion, preseptal cellulitis, conjunctivitis, orbital cellulitis, etc. On exam patient is in no acute distress, nontoxic appearing, vital signs appropriate. Her right upper eyelid has a chalazion with surrounding erythema and edema of the upper eyelid, some drainage from the eye. Normal visual acuity 20/20 of right eye. There is no proptosis, visual acuity change, or pain with extraocular movements concerning for orbital cellulitis at this time. No fixed pupil, eye pain or visual disturbance concerning for acute angle closure glaucoma. No uptake on fluorescein eye exam. Patient's symptoms consistent with chalazion with secondary development of bacterial conjunctivitis and possibly the start of a preseptal cellulitis. Patient has limited access to resources and I did advise she follow up with Ophthalmology however out of an abundance of caution I will treat her for possible early development of preseptal cellulitis with Augmentin in addition to doxycycline for MRSA coverage (she is allergic to sulfa). We will also cover for bacterial conjunctivitis with erythromycin ophthalmic ointment 4-6 times daily x7 days. Advised warm compresses in addition to washing eyelid with baby shampoo. Social work did meet with patient to help her with resources. She was given 1st dose of oral antibiotics and ophthalmic antibiotic in the emergency department. She verbalized understanding of all information and is agreeable to the plan. Strict ED return precautions were discussed. She is stable for discharge home. Discharge Plan Departure Patient Disposition: Home Clinical Impression: Chalazion of right upper eyelid, Preseptal cellulitis of right eye Acute conjunctivitis of right eye Qualifiers: Acute conjunctivitis type: unspecified Qualified Code(s): H10.31 - Unspecified acute conjunctivitis, right eye Instructions: DI for Chalazion Activity Restrictions/Additional Instructions: Dear Ila Lorena, Today you were evaluated for right eye pain and swelling. We are treating you for a right eye infection and chalazion. It is very important to complete full course of oral antibiotics and I ointment. Please use warm compresses at least 4 times a day on the left eye, wash the left eyelid with baby shampoo, and follow up with the eye doctor and primary care doctor. You may follow up with Ophthalmology Dr. Sargent here in [place] [phone]. Return to the emergency department immediately if you develop any new or worsening symptoms, visual changes, fevers, etc. Please follow up with your primary care doctor within the next 2-3 days for ER follow-up. (If you do not have a PCP you can call [phone]. ?to schedule an appointment with an [facility] Primary Care Provider) IF YOU DEVELOP ANY NEW OR WORSENING SYMPTOMS, RETURN TO THE ER! Please read the attached instructions, they highlight more specific treatments and interventions for you at home. Thank you for letting me participate in your care, Marley Jones PA-C Prescriptions: New doxycycline hyclate 100 mg capsule 100 mg PO BID 7 Days Qty: 14 0RF amoxicillin-pot clavulanate 875-125 mg tablet 1 tab PO Q12H 7 Days Qty: 14 0RF erythromycin 5 mg/gram (0.5 %) ointment 1 cm EYE-RIGHT 6XD 7 Days Qty: 3.5 0RF No Action loratadine [Claritin] 10 MG tablet 10 mg PO QDAY Qty: 90 1RF buprenorphine-naloxone [Suboxone] 8-2 mg film 1 film buccal DAILY Qty: 5 0RF Rx Instructions: [id number] loratadine 10 mg tablet 10 mg PO DAILY PRN (Reason: allergic symptoms) Qty: 30 1RF acetaminophen [Pain Reliever (acetaminophen)] 325 mg tablet 325 mg PO QID PRN (Reason: pain) Qty: 20 0RF Referrals: Luis Munguia MD [Primary Care Provider] - Stand Alone Forms: Patient Portal/API/Survey ED Sign-out <Lizeth Brown DO - Last Filed: 10/17/24 18:49> Cosign ED Attending Santiature Attestation: I was immediately available in the department for consultation.
[2024-10-17] MEDS: FLUORESCEIN 1 MG STRIP EYE-RIGHT (12:54)
[2024-10-17] MEDS: PROPARACAINE 0.5% OPHTH SOL 1 DROPS EYE-RIGHT (12:54)
[2024-10-17] MEDS: AMOXICILLIN/CLAV 875/125 MG 1 TAB PO (13:15)
[2024-10-17] MEDS: DOXYCYCLINE HYCLATE 100 MG TABLET PO (13:16)
[2024-10-17] MEDS: ERYTHROMYCIN OPHTH 1 GM OINT 1 APPLIC EYE-RIGHT (13:16)
--- NOTE | 2024-10-17 13:26 | PC.NURSE ---
PO meds given. Shante MACKAY met with patient. [facility] EER ointment given for pt to use 4-6x daily. Meds sent to [facility] in [place]. Mother contacted to see it pt can stay with family for a few days in which mother declined due to taking care of her with cancer. baby shampoo from [facility] was given to pt with a nettie bottle so she can easily wash her eye more efficiently.
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
== END 2024-10-17 13:57 | disposition home or self-care (01) ==
PROVIDERS: Emergency Provider Physician Assistant; PCP Family Medicine
DX: H10.31 Unspecified acute conjunctivitis, right eye (principal); H00.11 Chalazion right upper eyelid; L03.213 Periorbital cellulitis; Z59.00 Homelessness unspecified; Z88.6 Allergy status to analgesic agent; Z88.1 Allergy status to other antibiotic agents; Z88.2 Allergy status to sulfonamides
CPT/HCPCS: 99283

== ENCOUNTER 2025-01-24 00:19 | Emergency (ER) | payer MEDICAID, SELFPAY ==
[2025-01-24] VITALS (25 sets, daily range): BP systolic 104–148; BP diastolic 55–90; PULSE 69–98; RESP 15–32; TEMP 36.9; O2SAT 97–100; BMI 19.3
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
--- NOTE | 2025-01-24 01:00 | DI.CT.S_ITS ---
PROCEDURE: CT FACIAL BONES WO CON INDICATIONS: facial trauma 2d ago TECHNIQUE: Noncontrast 2.5 mm thick axial images acquired from the mandible through the frontal sinuses, with coronal and sagittal reformatting. For radiation dose reduction, the following was used: automated exposure control, adjustment of mA and/or kV according to patient size. COMPARISON: None. FINDINGS: Image quality: Excellent. Bones and teeth: Orbital watkins are intact. Sinus watkins show no fracture or deformity. Nasal bones and septum are intact. Visualized portions of the mandible demonstrate no fractures or subluxation. Zygomatic arches are intact. Pterygoid plates are intact. Visualized portions of the skull base and auditory canals are intact. Sinuses: Mild mucosal thickening in left maxillary sinus is seen. Rest of bilateral paranasal sinuses are well aerated. Mastoid air cells are aerated. Soft tissues: No edema, masses, or fluid collections. No enlarged lymph nodes. No soft tissue lacerations or debris. Vascular: Visualized vascular structures appear normal in the absence of contrast. Bony vascular foramina and canals are intact. IMPRESSION: 1. No acute orbital wall fractures. Bilateral orbital globes are intact. 2. No acute facial bone or nasal bone fracture. Mild mucosal thickening in left maxillary sinus. Rest of bilateral paranasal sinuses are well aerated. Bilateral mastoid air cells are well aerated. Dictated by: Sandro Zuniga M.D. on 01/24/2025 at 2:06 Approved by: Sandro Zuniga M.D. on 01/24/2025 at 2:08
--- NOTE | 2025-01-24 01:00 | DI.CT.S_ITS ---
PROCEDURE: CT CERVICAL SPINE WO CON INDICATIONS: head injury, eval for Csp injury TECHNIQUE: Noncontrast 3 mm thick sections acquired from the skull base to the T4 level. Sagittal and coronal reformats were then constructed. For radiation dose reduction, the following was used: automated exposure control, adjustment of mA and/or kV according to patient size. COMPARISON: None. FINDINGS: Image quality: Excellent. Bones: No fractures or dislocations. Mild degenerative endplate changes and loss of disc height at C3-4, C4-5, and C5-6 levels are seen. Visualized superior ribs are intact. Soft tissues: Prevertebral soft tissues are normal in thickness. No paravertebral hematomas. No apical pneumothoraces. IMPRESSION: 1. No displaced fracture or traumatic subluxation. 2. Mild spondylitic changes in cervical spine. The Dictated by: Sandro Zuniga M.D. on 01/24/2025 at 2:09 Approved by: Sandro Zuniga M.D. on 01/24/2025 at 2:10
[2025-01-24 01:23] LABS: Add Manual Diff / Slide Review NO; Basophils Absolute Auto 0 /uL (0-100); Basophils Percent Auto 0.5 % (0-2); Eosinophils Absolute Auto 100 /uL (0-450); Eosinophils Percent Auto 1.2 % (2-4); Hematocrit 39.3 % (36-46); Hemoglobin 13.3 g/dL (12.0-16.0); Lymphocytes Absolute Auto 2600 /uL (1100-4500); Lymphocytes Percent Auto 39.1 % (25-40); Mean Corpuscular HGB Conc 33.7 % (30-36); Mean Corpuscular Volume 88.8 fL (80-100); Monocytes Absolute Auto 400 /uL (0-900); Monocytes Percent Auto 5.8 % (3-14); Neutrophils Absolute Auto 3500 /uL (1500-7000); Neutrophils Percent Auto 53.4 % (50-75); Platelet Count 292 X10^3/uL (150-400); Red Blood Cell Count 4.43 X10^6/uL (4.0-5.2); Red Cell Distribution Width 14.9 % (11.6-14.8); White Blood Cell Count 6.6 X10^3/uL (4.5-11.0)
[2025-01-24 01:29] LABS: Prothrombin Time 11.2 SECONDS (9.4-12.5)
[2025-01-24 01:31] LABS: PTT Partial Thromboplastin Tim 41 SECONDS (25.1-36.5)
[2025-01-24 01:32] LABS: Ammonia (NH3) < 9 umol/L (9-30)
[2025-01-24 01:33] LABS: Alanine Aminotransferase 15 IU/L (<35); Albumin 4.4 g/dL (3.5-5.0); Albumin Globulin Ratio 1.8 (1.0-2.8); Alkaline Phosphatase 50 U/L (38-126); Aspartate Aminotransferase 21 IU/L (14-36); BUN Creatinine Ratio 20.3 (6-22); Bilirubin Total 0.3 mg/dL (0.2-1.3); Blood Urea Nitrogen 15 mg/dL (7-17); Calcium 9.3 mg/dL (8.4-10.2); Carbon Dioxide 29 mmol/L (22-32); Chloride 103 mmol/L (98-107); Estimated Glomerular Filt Rate > 60 mL/min (>60); Ethanol (ETOH) < 10 mg/dL; Globulin 2.5 g/dL (1.7-4.1); Glucose 107 mg/dL (70-99); HEMOLYSIS < 15 (0-50); Lactate (Lactic Acid) 0.6 mmol/L (0.7-2.1); Potassium 3.4 mmol/L (3.4-5.1); Sodium 140 mmol/L (137-145); Total Protein 6.9 g/dL (6.3-8.2)
[2025-01-24 01:53] LABS: UR Morphine/Opiate cutoff 300 Negative (Negative); Ur Creatinine Normal (Normal); Ur Specific Gravity Normal (Normal); Urine Amphetamines Positive (Negative); Urine Cocaine Negative (Negative); Urine Tetrahydrocannabinol Negative (Negative); Urine pH Normal (Normal)
[2025-01-24 01:54] LABS: Urine Barbiturates Negative (Negative); Urine Benzodiazepines Negative (Negative); Urine MDMA Negative (Negative); Urine Methadone Negative (Negative); Urine Methamphetamines Positive (Negative); Urine Oxycodone Negative (Negative); Urine Phencyclidine Negative (Negative); Urine Tricyclic Antidepressant Negative (Negative)
--- NOTE | 2025-01-24 06:04 | PC.NURSE ---
No Seizure or Seizure activity noted during this nurses shift while monitoring pt.
--- NOTE | 2025-01-24 11:31 | CM.SWNOTE ---
ED QUALITY CONTROL SUPERVISOR Note Patient is 44 y/o female who presents to ED due to concern for seizure. Patient is observed in ED overnight medically cleared. It is reported that patient is currently houseless as her tent was taken down by law enforcement. QUALITY CONTROL SUPERVISOR enters room to meet with patient. Patient endorses plans to go to [facility] today to sign up for food benefits. Patient requests resources for legal advice resources for assistance in applying for SSI. QUALITY CONTROL SUPERVISOR offers bus passes, basic needs and housing resources, patient graciously accepts resources. QUALITY CONTROL SUPERVISOR provides [address] transit day passes to patient and lists of free legal advice. Patient endorses plan to follow up with [facility] today as well. Plan: Patient to d/c to community upon medical clearance with resources provided. LIDIA CovarrubiasSW
== END 2025-01-24 11:38 | disposition home or self-care (01) ==
PROVIDERS: Emergency Medicine; Emergency Provider Emergency Medicine; PCP Family Medicine
DX: S05.12XA Contusion of eyeball and orbital tissues, left eye, initial encounter (principal); Z59.00 Homelessness unspecified; S09.90XA Unspecified injury of head, initial encounter; R56.9 Unspecified convulsions
CPT/HCPCS: 36415; 70450; 70486; 72125; 80053; 80305; 80320; 82140; 82962; 83605; 85025; 85610; 85730; 99283; 99284